=== PATIENT | female | born 1970 | race Caucasian/White ===

== ENCOUNTER 2016-08-10 03:05 | Emergency (ER) | payer MEDICAID, OTHER ==
[~2016-08-10] VITALS: Ht 165.1 cm; Wt 60.0 kg
[~2016-08-10 03:05] MED LIST: HYDR7.5T76 PO; TAMO20TA4 PO
[2016-08-10 03:12] VITALS: BP 130/89; PULSE 67; RESP 14; O2SAT 100
[2016-08-10] MEDS ORDERED: SODIUM CHLORIDE 0.9% FLUSH 10 ML FLUSH IVF PRN (03:15)
--- NOTE | 2016-08-10 03:19 | PD ---
HPI Chief Complaint: OD/ Ingestion Time Seen by Provider: 03:14 Travel History International Travel<30 days: No Contact w/Intl Traveler<30days: No History of Present Illness HPI 46-year-old female brought here by EMS after overdose. Patient was reportedly found in the front yard of the unknown person. Bystanders kindly called EMS. EMS found her unresponsive, hypoventilating with respiratory rate of 3-5, pinpoint pupils. Fresh track zhao. Police found a spoon and a syringe on her person. EMS administered 0.4 mg of Narcan with improvement, GCS 14, agitated and attempting to bite EMS. She was placed in restraints. Blood glucose normal. Patient stable in route. PFS Past Medical History Asthma: Yes Cancer: Yes (BREAST) Congestive Heart Failure: Yes COPD: Yes Diminished Hearing: No Neurologic: Yes (PINCHED NERVE IN BACK) Immunizations Current: Yes Radiation Therapy: Yes : 3 Para: 0 Miscarriage: 03 Ectopic : Yes Past Surgical History Gynecologic Surgery: Yes (SALPINGOECTOMY) Tonsillectomy: Yes Other Surgery: Yes (MASTECTOMY) Social History Alcohol Use: Yes (LAST NIGHT AND TODAY) Tobacco Use: Yes (/2 PPD) Substance Use: Yes Allergies-Medications (Allergen,Severity, Reaction): Coded Allergies: Acetaminophen (Verified Allergy, Intermediate, EPS, 05/17/14) Haldol (Verified Allergy, Intermediate, EPS, 05/17/14) Imitrex (Verified Allergy, Intermediate, EPS, 05/17/14) Reported Meds & Prescriptions Reported Meds & Active Scripts Active Active Prescriptions or Reported Medications Unobtainable Review of Systems ROS Limitations: Altered Mental Status Physical Exam Exam Limitations: Altered Mental Status Narrative GENERAL: Thin female SKIN: Focused skin assessment warm/dry. Previous left mastectomy. Fresh track zhao in the right upper extremity and old track zhao in the left upper extremity HEAD: Atraumatic. Normocephalic. EYES: Pupils equal and round. 4 mm and briskly reactive No scleral icterus. No injection or drainage. ENT: No nasal bleeding or discharge. Mucous membranes pink and moist. NECK: Supple CARDIOVASCULAR: Regular rate and rhythm. No murmur appreciated. RESPIRATORY: No accessory muscle use. Clear to auscultation. Breath sounds equal bilaterally. GASTROINTESTINAL: Abdomen soft, non-tender, nondistended. MUSCULOSKELETAL: No obvious deformities. No edema. NEUROLOGICAL: Lying in bed with eyes partially opened. With noxious stimuli and moves all 4 extremities. Grossly nonfocal neuro exam but limited due to mental status. Localizes pain, screaming "ouch" with noxious stimuli. PSYCHIATRIC: Deferred given mental status Data Data Last Documented VS Vital Signs Date Time Temp Pulse Resp B/P Pulse Ox O2 Delivery O2 Flow Rate FiO2 08/10/16 03:28 97.6 67 14 130/89 96 Room Air Orders Electrocardiogram (08/10/16 03:14) Basic Metabolic Panel (Bmp) (08/10/16 03:14) Complete Blood Count With Diff (08/10/16 03:14) Iv Access Insert/Monitor (08/10/16 03:14) Ecg Monitoring (08/10/16 03:14) Oximetry (08/10/16 03:14) Sodium Chloride 0.9% Flush (Ns Flush) (08/10/16 03:15) Alcohol (Ethanol) (08/10/16 03:14) Potassium Chloride (Kcl) (08/10/16 04:00) Labs Laboratory Tests Test 08/10/16 03:22 White Blood Count 8.7 TH/MM3 Red Blood Count 4.99 MIL/MM3 Hemoglobin 14.1 GM/DL Hematocrit 42.5 % Mean Corpuscular Volume 85.1 FL Mean Corpuscular Hemoglobin 28.2 PG Mean Corpuscular Hemoglobin 33.1 % Concent Red Cell Distribution Width 13.0 % Platelet Count 352 TH/MM3 Mean Platelet Volume 8.0 FL Neutrophils (%) (Auto) 50.4 % Lymphocytes (%) (Auto) 35.8 % Monocytes (%) (Auto) 8.1 % Eosinophils (%) (Auto) 4.3 % Basophils (%) (Auto) 1.4 % Neutrophils # (Auto) 4.4 TH/MM3 Lymphocytes # (Auto) 3.1 TH/MM3 Monocytes # (Auto) 0.7 TH/MM3 Eosinophils # (Auto) 0.4 TH/MM3 Basophils # (Auto) 0.1 TH/MM3 CBC Comment DIFF FINAL Differential Comment Sodium Level 140 MEQ/L Potassium Level 3.0 MEQ/L Chloride Level 103 MEQ/L Carbon Dioxide Level 32.7 MEQ/L Anion Gap 4 MEQ/L Blood Urea Nitrogen 14 MG/DL Creatinine 0.78 MG/DL Estimat Glomerular Filtration 80 ML/MIN Rate Random Glucose 65 MG/DL Calcium Level 8.9 MG/DL Ethyl Alcohol Level LESS THAN 3 MG/DL MDM Medical Decision Making Medical Screen Exam Complete: Yes Emergency Medical Condition: Yes Medical Record Reviewed: Yes Differential Diagnosis 46-year-old female brought in by EMS for altered mental status and possible overdose responding to Narcan. Differential includes opioid overdose, accidental versus intentional, alcohol intoxication, other coingestion, electrolyte abnormality. Clinically there is no evidence of external head trauma and patient's neurologic examination is nonfocal, Less likely head injury, ICH. Narrative Course Patient placed on monitor, IV established and blood obtained. Twelve-lead EKG showed sinus rhythm without notable ST or T-wave abnormalities and normal intervals. QRS 99, QTC 447. CBC, BMP, blood alcohol level unremarkable. Patient was observed in the emergency department for prolonged period without any evidence of repeat hypoventilation, hypoxia. Mental status gradually improved. Patient will ambulate independently and will be discharged home Diagnosis Primary Impression: Opioid overdose Qualified Code: T40.2X1A - Opioid overdose, accidental or unintentional, initial encounter Referrals: [facility] for appointment Additional Instructions: Seek outpatient management for her chemical dependency Med/Other Pt SpecificInfo: No Change to Meds Scripts Unable to Obtain Active Prescriptions or Reported Meds Disposition: 01 DISCHARGE HOME Condition: Stable Gisselle Collier MD Aug 10, 2016 03:19
[2016-08-10 03:28] VITALS: BP 130/89; PULSE 67; RESP 14; TEMP 97.6; O2SAT 96
[2016-08-10 03:40] LABS: AUTOMATED NEUTROPHIL # 4.4 TH/MM3 (1.8-7.7); BASOPHIL # 0.1 TH/MM3 (0-0.2); BASOPHIL % 1.4 % (0.0-2.0); EOSINOPHIL # 0.4 TH/MM3 (0-0.4); EOSINOPHIL % 4.3 % (0.0-4.0); HEMATOCRIT 42.5 % (35.0-46.0); HEMO FLAGS DIFF FINAL; LYMPH % 35.8 % (9.0-44.0); LYMPHOCYTE # 3.1 TH/MM3 (1.0-4.8); MEAN CELL VOLUME 85.1 FL (80.0-100.0); MEAN CORPUSCULAR HEMOGLOBIN 28.2 PG (27.0-34.0); MEAN CORPUSCULAR HGB CONC 33.1 % (32.0-36.0); MONO % 8.1 % (0.0-8.0); NEUT % 50.4 % (16.0-70.0); PLATELET COUNT 352 TH/MM3 (150-450); RED BLOOD COUNT 4.99 MIL/MM3 (4.00-5.30); WHITE BLOOD COUNT 8.7 TH/MM3 (4.0-11.0)
[2016-08-10 03:50] LABS: ANION GAP 4 MEQ/L (5-15); BICARBONATE 32.7 MEQ/L (21.0-32.0); BLOOD UREA NITROGEN 14 MG/DL (7-18); CHLORIDE 103 MEQ/L (98-107); GLOMERULAR FILTRATION RATE 80 ML/MIN (>89); SODIUM (NA) 140 MEQ/L (136-145)
[2016-08-10] MEDS ORDERED: POTASSIUM CHLORIDE 20 MEQ CONTROLLED RELEASE TAB PO ONE (04:00)
[2016-08-10 06:24] VITALS: BP 133/83; PULSE 55; RESP 14; O2SAT 99
[2016-08-10 07:00] VITALS: BP 120/78; PULSE 78; RESP 17; TEMP 97.8; O2SAT 99
[2016-08-10 08:20] VITALS: BP 120/78; TEMP 97.8
--- NOTE | 2016-08-10 12:11 | EKG ---
Date Performed: 08/10/2016 Time Performed: 03:40:56 PTAGE: 46 years EKG: Sinus rhythm NORMAL ECG PREVIOUS TRACING : 04/25/2014 10.17 Compared to prior tracing no significant change DOCTOR: Chris Mcnally Interpretating Date/Time 08/10/2016 12:10:10
== END 2016-08-10 08:30 | disposition home or self-care (01) ==
LOC: NEPE 03:05
DX: T40.2X1A Poisoning by other opioids, accidental (unintentional), initial encounter (principal); R41.82 Altered mental status, unspecified; J45.909 Unspecified asthma, uncomplicated; I50.9 Heart failure, unspecified; J44.9 Chronic obstructive pulmonary disease, unspecified; F17.200 Nicotine dependence, unspecified, uncomplicated
CPT/HCPCS: 80048; 80307; 85025; 93005; 99284

== ENCOUNTER 2016-09-19 09:00 | Observation (INO) | payer OTHER ==
[~2016-09-19] VITALS: Ht 160 cm; Wt 47.9 kg
[2016-09-19] VITALS (7 sets, daily range): BP systolic 128–168; BP diastolic 80–100; PULSE 78–120; RESP 14–22; TEMP 96.7–98; O2SAT 98–100
[2016-09-19] MEDS ORDERED: SODIUM CHLOR 0.9% 1000 ML INJ 1,000 ML IV ONE (09:20)
[2016-09-19] MEDS ORDERED: SODIUM CHLORIDE 0.9% FLUSH 10 ML FLUSH IVF PRN (09:30)
--- NOTE | 2016-09-19 09:31 | PD ---
HPI Chief Complaint: Medical Clearance Time Seen by Provider: 09:10 Travel History International Travel<30 days: No Contact w/Intl Traveler<30days: No Traveled to known affect area: No History of Present Illness HPI This is a 46-year-old female who has a history of IV drug use looking through her old records, who presents via EMS from [facility] after she was found with altered mental status. Fire transport report that they initially got a call for her acting strange. When they arrived they found that she had dystonic type reaction with tardive dyskinesia. They stated the patient was clear for transport with the PD officer. However PD officer reports that she then started doubling over. When they arrived they found her in a rigid flexed position. They state that she appeared to have more dystonic type symptoms. When the patient arrived here she is uncooperative and has agitated type movement. She reports that she took pills. She could not elaborate what type of pills she did. medical tech reports that she may have told them that she took diuretics. There is no further history elicited. She does appear to have older track zhao on her left arm. PFSH Past Medical History Asthma: Yes Cancer: Yes (BREAST) Congestive Heart Failure: Yes COPD: Yes Diminished Hearing: No Neurologic: Yes (PINCHED NERVE IN BACK) Immunizations Current: Yes Radiation Therapy: Yes ?: Unknown : 3 Para: 0 Miscarriage: 3 Ectopic : Yes Past Surgical History Surgical History: Unable to Obtain Gynecologic Surgery: Yes (SALPINGOECTOMY) Tonsillectomy: Yes Other Surgery: Yes (MASTECTOMY) Social History Alcohol Use: Yes (UNABLE TO ASSESS PT UNRESPONSIVE) Tobacco Use: Yes (UNABLE TO ASSESS PT UNRESPONSIVE) Substance Use: Yes (UNABLE TO ASSESS PT UNRESPONSIVE) Allergies-Medications (Allergen,Severity, Reaction): Coded Allergies: Acetaminophen (Verified Allergy, Intermediate, EPS, 05/17/14) Haldol (Verified Allergy, Intermediate, EPS, 05/17/14) Imitrex (Verified Allergy, Intermediate, EPS, 05/17/14) Reported Meds & Prescriptions Reported Meds & Active Scripts Active Active Prescriptions or Reported Medications Unobtainable Review of Systems ROS Limitations: Clinical Condition, Altered Mental Status, Uncooperative, Combative Except as stated in HPI: all other systems reviewed are Neg Physical Exam Narrative GENERAL: Well-developed well-nourished female who is acutely agitated and is writhing all over the bed. She does not appear to be in pain. She just appears to be under the influence of something and is squirming about on the bed. SKIN: Focused skin assessment warm/dry. HEAD: Atraumatic. Normocephalic. EYES: Pupils equal at 3 mm. Reactive.. No scleral icterus. No injection or drainage. ENT: No nasal bleeding or discharge. Mucous membranes pink and moist. NECK: Trachea midline. Supple. CARDIOVASCULAR: Regular rate and rhythm. No murmur appreciated. RESPIRATORY: No accessory muscle use. Clear to auscultation. Breath sounds equal bilaterally. GASTROINTESTINAL: Abdomen soft, non-tender, nondistended. MUSCULOSKELETAL: No obvious deformities. No clubbing. No cyanosis. No edema. Old appearing track zhao on the left before meals. No evidence of abscess or lesions on her skin. NEUROLOGICAL: Awake and agitated and confused. No obvious cranial nerve deficits. Motor grossly within normal limits. Normal speech. Data Data Last Documented VS Vital Signs Date Time Temp Pulse Resp B/P Pulse Ox O2 Delivery O2 Flow Rate FiO2 09/19/16 11:44 120 16 168/93 98 Room Air 09/19/16 09:00 98.0 Orders Electrocardiogram (09/19/16 09:20) Complete Blood Count With Diff (09/19/16 09:20) Comprehensive Metabolic Panel (09/19/16 09:20) Urinalysis - C+S If Indicated (09/19/16 09:20) Chest, Single Ap (09/19/16 09:20) Iv Access Insert/Monitor (09/19/16 09:20) Ecg Monitoring (09/19/16 09:20) Oximetry (09/19/16 09:20) Sodium Chloride 0.9% Flush (Ns Flush) (09/19/16 09:30) Sodium Chlor 0.9% 1000 Ml Inj (Ns 1000 M (09/19/16 09:20) Restraints Non-Violent DAWSON.Q3H (09/19/16 09:20) Drug Screen, Random Urine (09/19/16 09:20) Alcohol (Ethanol) (09/19/16 09:20) Salicylates (Aspirin) (09/19/16 09:20) Tylenol (Acetaminophen) (09/19/16 09:20) Ed Urine Pregnancytest Poc (09/19/16 09:20) Ziprasidone Inj (Geodon Inj) (09/19/16 09:30) Ziprasidone Inj (Geodon Inj) (09/19/16 10:15) Lorazepam Inj (Ativan Inj) (09/19/16 12:00) Lorazepam Inj (Ativan Inj) (09/19/16 12:00) Ns + Kcl 20 Meq Inj (Ns + Kcl 20 Meq Inj (09/19/16 13:15) Admit Order (Ed Use Only) (09/19/16 13:47) Labs Laboratory Tests Test 09/19/16 09:25 White Blood Count 17.6 TH/MM3 Red Blood Count 4.59 MIL/MM3 Hemoglobin 13.4 GM/DL Hematocrit 40.0 % Mean Corpuscular Volume 87.3 FL Mean Corpuscular Hemoglobin 29.2 PG Mean Corpuscular Hemoglobin 33.5 % Concent Red Cell Distribution Width 15.8 % Platelet Count 344 TH/MM3 Mean Platelet Volume 8.2 FL Neutrophils (%) (Auto) 76.9 % Lymphocytes (%) (Auto) 15.1 % Monocytes (%) (Auto) 6.8 % Eosinophils (%) (Auto) 0.9 % Basophils (%) (Auto) 0.3 % Neutrophils # (Auto) 13.6 TH/MM3 Lymphocytes # (Auto) 2.7 TH/MM3 Monocytes # (Auto) 1.2 TH/MM3 Eosinophils # (Auto) 0.2 TH/MM3 Basophils # (Auto) 0.1 TH/MM3 CBC Comment DIFF FINAL Differential Comment Urine Color YELLOW Urine Turbidity CLEAR Urine pH 5.5 Urine Specific [place] 1.028 Urine Protein TRACE mg/dL Urine Glucose (UA) NEG mg/dL Urine Ketones NEG mg/dL Urine Occult Blood NEG Urine Nitrite NEG Urine Bilirubin NEG Urine Urobilinogen LESS THAN 2.0 MG/DL Urine Leukocyte Esterase NEG Urine RBC LESS THAN 1 /hpf Urine WBC 1 /hpf Urine Squamous Epithelial 1 /hpf Cells Urine Hyaline Casts 2 /lpf Urine Mucus FEW /lpf Microscopic Urinalysis Comment CULT NOT INDICATED Sodium Level 141 MEQ/L Potassium Level 3.2 MEQ/L Chloride Level 106 MEQ/L Carbon Dioxide Level 23.8 MEQ/L Anion Gap 11 MEQ/L Blood Urea Nitrogen 25 MG/DL Creatinine 0.69 MG/DL Estimat Glomerular Filtration 92 ML/MIN Rate Random Glucose 80 MG/DL Calcium Level 8.6 MG/DL Total Bilirubin 0.9 MG/DL Aspartate Amino Transf 31 U/L (AST/SGOT) Alanine Aminotransferase 32 U/L (ALT/SGPT) Alkaline Phosphatase 58 U/L Total Protein 7.7 GM/DL Albumin 3.8 GM/DL Salicylates Level LESS THAN 1.7 MG/DL Urine Opiates Screen NEG Acetaminophen Level LESS THAN 2.0 MCG/ML Urine Barbiturates Screen NEG Urine Amphetamines Screen POS Urine Benzodiazepines Screen NEG Urine Cocaine Screen POS Urine Cannabinoids Screen POS Ethyl Alcohol Level LESS THAN 3 MG/DL MDM Medical Decision Making Medical Screen Exam Complete: Yes Emergency Medical Condition: Yes Differential Diagnosis Overdose versus EPS versus metabolic derangement Narrative Course 46-year-old female with a history of previous drug abuse, presents via EMS in custody after she was found violent and agitated. Initial call was for possible dystonic reaction. Patient was going to then be brought to prison or to the hospital by the fashion illustrator. Patient then started having contractions of her body. When paramedics arrived they found her agitated and what appeared to be in a dystonic or agitated state. The patient was extremely agitated and uncooperative. She reported she took "pills". It was unknown what type of pills. The patient's tox screen is positive for amphetamines cocaine and cannabinoids. Serum alcohol level is negative. Acetaminophen and Tylenol levels are negative. The patient has required 6 mg of IV Ativan. She also been given 20 mg of Geodon. She is currently resting much more comfortably. She'll be admitted to the hospital for observation. Her potassium was slightly low at she's been started on normal saline with potassium chloride replacement. There is a call out to the [facility] for admission. Diagnosis Primary Impression: Polysubstance abuse Additional Impressions: Agitation states as acute reaction to exceptional (gross) stress mild hypokalemia Admitting Information Admitting Physician Requests: Observation Scripts Unable to Obtain Active Prescriptions or Reported Meds Alphonso Styles MD Sep 19, 2016 09:31
[2016-09-19] MEDS: ZIPRASIDONE MESYLATE 20 MG VIAL IM PRN (09:38)
[2016-09-19] MEDS ORDERED: ZIPRASIDONE MESYLATE 20 MG VIAL IM ONE (10:15)
[2016-09-19 10:42] LABS: ANION GAP 11 MEQ/L (5-15); AST (GOT) 31 U/L (15-37); BICARBONATE 23.8 MEQ/L (21.0-32.0); BLOOD UREA NITROGEN 25 MG/DL (7-18); CHLORIDE 106 MEQ/L (98-107); GLOMERULAR FILTRATION RATE 92 ML/MIN (>89); POTASSIUM 3.2 MEQ/L (3.5-5.1); SODIUM (NA) 141 MEQ/L (136-145)
[2016-09-19 10:44] LABS: ALKALINE PHOSPHATASE 58 U/L (45-117); ALT (GPT) 32 U/L (10-53); TOTAL BILIRUBIN ADULT 0.9 MG/DL (0.2-1.0)
[2016-09-19 10:46] LABS: AUTOMATED NEUTROPHIL # 13.6 TH/MM3 (1.8-7.7); BASOPHIL # 0.1 TH/MM3 (0-0.2); BASOPHIL % 0.3 % (0.0-2.0); EOSINOPHIL # 0.2 TH/MM3 (0-0.4); EOSINOPHIL % 0.9 % (0.0-4.0); HEMO FLAGS DIFF FINAL; LYMPH % 15.1 % (9.0-44.0); LYMPHOCYTE # 2.7 TH/MM3 (1.0-4.8); MEAN CELL VOLUME 87.3 FL (80.0-100.0); MEAN CORPUSCULAR HEMOGLOBIN 29.2 PG (27.0-34.0); MEAN CORPUSCULAR HGB CONC 33.5 % (32.0-36.0); MONO % 6.8 % (0.0-8.0); NEUT % 76.9 % (16.0-70.0); PLATELET COUNT 344 TH/MM3 (150-450); RED BLOOD COUNT 4.59 MIL/MM3 (4.00-5.30); RED CELL DISTRIBUTION WIDTH 15.8 % (11.6-17.2); WHITE BLOOD COUNT 17.6 TH/MM3 (4.0-11.0)
[2016-09-19 10:48] LABS: ACETAMINOPHEN LESS THAN 2.0 MCG/ML (10.0-30.0)
--- NOTE | 2016-09-19 10:48 | RADRPT ---
EXAM DATE/TIME: 09/19/2016 09:51 [facility] COMPARISON: No previous studies available for comparison. INDICATIONS : Shortness of breath. MEDICAL HISTORY : Unobtainable. SURGICAL HISTORY : Unobtainable. ENCOUNTER: Initial ACUITY: 1 day PAIN SCORE: Non-responsive. LOCATION: Bilateral chest FINDINGS: A single view of the chest demonstrates the lungs to be symmetrically aerated without evidence of mas s, infiltrate or effusion. The cardiomediastinal contours are unremarkable. Osseous structures are intact. CONCLUSION: No acute disease. Jeff Weinstein MD FACR on September 19, 2016 at 10:42 Board Certified Radiologist. This report was verified electronically.
[2016-09-19 10:50] LABS: BLOOD, URINE NEG (NEG); GLUCOSE,URINE NEG (NEG); HYALINE CAST, URINE 2 /lpf (RARE); KETONE, URINE NEG (NEG); MUCUS URINE FEW /lpf (OCC); NITRITE,URINE NEG (NEG); PH, URINE 5.5 (5.0-8.5); SQUAMOUS EPITHELIAL CELL URINE 1 /hpf (0-5); URINE COLOR YELLOW (YELLW/STRAW)
[2016-09-19 10:53] LABS: COMMENT (UR) CULT NOT INDICATED; CULTURE IF INDICATED CULT NOT INDICATED
[2016-09-19 11:29] LABS: AMPHETAMINE, URINE POS (NEG); BARBITURATES, URINE NEG (NEG); COCAINE, URINE POS (NEG)
[2016-09-19] MEDS ORDERED: LORazepam 2 MG/ML VIAL IV PUSH ONE ×2 (12:00)
[2016-09-19] MEDS: NS + KCL 20 MEQ INJ 1,000 ML IV SCH ×2 (13:15→20:59)
--- NOTE | 2016-09-19 14:19 | HHI.HP ---
[facility] Service [facility] Primary Care Physician No Primary Care Physician Admission Diagnosis sympathomimetic ingestion. acute agitation. Diagnoses: (1) Polysubstance abuse Diagnosis: Principal Chief Complaint: polysubstance abuse Travel History International Travel<30 Days: No Contact w/Intl Traveler <30 Da: No Traveled to Known Affected Are: No History of Present Illness This is a 46-year-old female who has a history of IV drug use , who presents via EMS after she was found with altered mental status. per ER report she was found acting strange. When ambulance arrived they found that she had dystonic type reaction with tardive dyskinesia. upon arrival to ER she was very agitated for which she got Geodon and Ativan. at the time of my evaluation she was sedated and I wasn't able to obtain any further information. Review of Systems ROS Limitations: Intoxication, Altered Mental Status Past Family Social History Past Medical History questionable history of COPD and breast cancer per ER documents. Past Surgical History could not be obtained. Reported Medications none reported. Allergies: Coded Allergies: Acetaminophen (Verified Allergy, Intermediate, EPS, 05/17/14) Haldol (Verified Allergy, Intermediate, EPS, 05/17/14) Imitrex (Verified Allergy, Intermediate, EPS, 05/17/14) Active Ordered Medications Current Medications Sodium Chloride 2 ml 2 ml UNSCH PRN IVF FLUSH AFTER USING IV ACCESS; Start at 09:30 Sodium Chloride (NS 1000 ml Inj) 1,000 ml @ 1,000 mls/hr Q1H ONCE IV Last administered on 09/19/16 09:38; Start 09/19/16 at 09:20; Stop 09/19/16 at 10:19 ; Status DC Ziprasidone (Geodon Inj) 10 mg Q12H PRN IM AGITATION Last administered on 09:38; Start 09/19/16 at 09:30 Ziprasidone (Geodon Inj) 10 mg ONCE ONCE IM Last administered on 09/19/16 10: 21; Start 09/19/16 at 10:15; Stop 09/19/16 at 10:16; Status DC Lorazepam (Ativan Inj) 2 mg ONCE ONCE IV PUSH Last administered on 09/19/16 12:00; Start 09/19/16 at 12:00; Stop 09/19/16 at 12:03; Status DC Lorazepam 2 mg 2 mg ONCE ONCE IV PUSH Last administered on 09/19/16 12:00; Start 09/19/16 at 12:00; Stop 09/19/16 at 12:03; Status DC Potassium Chloride/Sodium Chloride (NS + KCl 20 Meq Inj) 1,000 ml @ 200 mls/hr Q5H IV Last administered on 09/19/16 13:15; Start 09/19/16 at 13:15 Family History could not be obtained. Social History history of drug abuse. Physical Exam Vital Signs Vital Signs Date Time Temp Pulse Resp B/P Pulse Ox O2 Delivery O2 Flow Rate FiO2 09/19/16 13:56 101 22 162/100 98 Room Air 09/19/16 11:44 120 16 168/93 98 Room Air 09/19/16 09:18 17 16 09/19/16 09:00 98.0 102 15 136/80 99 09/19/16 09:00 100 Physical Exam GENERAL: sedated- in no acute distress SKIN: No rashes, ecchymoses or lesions. Cool and dry. HEAD: Atraumatic. Normocephalic. No temporal or scalp tenderness. EYES: Pupils equal round and reactive. Extraocular motions intact. No scleral icterus. No injection or drainage. ENT: Nose without bleeding, purulent drainage or septal hematoma. Throat without erythema, tonsillar hypertrophy or exudate. Uvula midline. Airway patent. NECK: Trachea midline. No JVD or lymphadenopathy. Supple, nontender, no meningeal signs. CARDIOVASCULAR: Regular rate and rhythm without murmurs, gallops, or rubs. RESPIRATORY: Clear to auscultation. Breath sounds equal bilaterally. No wheezes , rales, or rhonchi. GASTROINTESTINAL: Abdomen soft, non-tender, nondistended. No hepato-splenomegaly , or palpable masses. No guarding. MUSCULOSKELETAL: Extremities without clubbing, cyanosis, or edema. No joint tenderness, effusion, or edema noted. No calf tenderness. Negative Homans sign bilaterally. NEUROLOGICAL: sedated. Laboratory Laboratory Tests Test 09/19/16 09:25 White Blood Count 17.6 Red Blood Count 4.59 Hemoglobin 13.4 Hematocrit 40.0 Mean Corpuscular Volume 87.3 Mean Corpuscular Hemoglobin 29.2 Mean Corpuscular Hemoglobin 33.5 Concent Red Cell Distribution Width 15.8 Platelet Count 344 Mean Platelet Volume 8.2 Neutrophils (%) (Auto) 76.9 Lymphocytes (%) (Auto) 15.1 Monocytes (%) (Auto) 6.8 Eosinophils (%) (Auto) 0.9 Basophils (%) (Auto) 0.3 Neutrophils # (Auto) 13.6 Lymphocytes # (Auto) 2.7 Monocytes # (Auto) 1.2 Eosinophils # (Auto) 0.2 Basophils # (Auto) 0.1 CBC Comment DIFF FINAL Differential Comment Urine Color YELLOW Urine Turbidity CLEAR Urine pH 5.5 Urine Specific [place] 1.028 Urine Protein TRACE Urine Glucose (UA) NEG Urine Ketones NEG Urine Occult Blood NEG Urine Nitrite NEG Urine Bilirubin NEG Urine Urobilinogen LESS THAN 2.0 Urine Leukocyte Esterase NEG Urine RBC LESS THAN 1 Urine WBC 1 Urine Squamous Epithelial 1 Cells Urine Hyaline Casts 2 Urine Mucus FEW Microscopic Urinalysis Comment CULT NOT INDICATED Sodium Level 141 Potassium Level 3.2 Chloride Level 106 Carbon Dioxide Level 23.8 Anion Gap 11 Blood Urea Nitrogen 25 Creatinine 0.69 Estimat Glomerular Filtration 92 Rate Random Glucose 80 Calcium Level 8.6 Total Bilirubin 0.9 Aspartate Amino Transf 31 (AST/SGOT) Alanine Aminotransferase 32 (ALT/SGPT) Alkaline Phosphatase 58 Total Protein 7.7 Albumin 3.8 Salicylates Level LESS THAN 1.7 Urine Opiates Screen NEG Acetaminophen Level LESS THAN 2.0 Urine Barbiturates Screen NEG Urine Amphetamines Screen POS Urine Benzodiazepines Screen NEG Urine Cocaine Screen POS Urine Cannabinoids Screen POS Ethyl Alcohol Level LESS THAN 3 Result Diagram: 09/19/1692409/[id number]/16924 Imaging Last Impressions Chest X-Ray 09/19/16919 Signed Impressions: Service Date/Time: Monday, September 19, 2016 09:51 - CONCLUSION: No acute disease. Jeff Weinstein MD FACR EKG; sinus tachycardia Assessment and Plan Assessment and Plan A/P - drug overdose continue with supportive care with IV fluid- neuro-checks- Geodon as needed. NPO for now till her mental status improves. -leukocytosis- likely reactive- will monitor temps- CBC in am -hypokalemia- will replace as needed. Discussed Condition With ER physician. Tang Hummel MD Sep 19, 2016 14:18
[2016-09-20] VITALS: BP 121/74; PULSE 92; RESP 17; TEMP 97; O2SAT 98
[2016-09-20 04:00] VITALS: BP 122/74; PULSE 84; RESP 18; TEMP 97.6; O2SAT 98
[2016-09-20] MEDS: NS + KCL 20 MEQ INJ 1,000 ML IV SCH ×2 (04:19→06:31)
[2016-09-20 07:50] VITALS: BP 117/81; PULSE 98; RESP 16; TEMP 98; O2SAT 99
[2016-09-20 08:02] LABS: BASOPHIL % 0.5 % (0.0-2.0); EOSINOPHIL # 0.3 TH/MM3 (0-0.4); EOSINOPHIL % 2.7 % (0.0-4.0); HEMATOCRIT 37.6 % (35.0-46.0); HEMO FLAGS DIFF FINAL; LYMPH % 19.2 % (9.0-44.0); LYMPHOCYTE # 1.8 TH/MM3 (1.0-4.8); MEAN CELL VOLUME 86.8 FL (80.0-100.0); MEAN CORPUSCULAR HEMOGLOBIN 30.1 PG (27.0-34.0); MEAN CORPUSCULAR HGB CONC 34.7 % (32.0-36.0); NEUT % 72.6 % (16.0-70.0); PLATELET COUNT 296 TH/MM3 (150-450); RED BLOOD COUNT 4.33 MIL/MM3 (4.00-5.30); RED CELL DISTRIBUTION WIDTH 15.9 % (11.6-17.2); WHITE BLOOD COUNT 9.6 TH/MM3 (4.0-11.0)
[2016-09-20] MEDS: ZIPRASIDONE MESYLATE 20 MG VIAL IM PRN (08:03)
[2016-09-20 08:16] LABS: BICARBONATE 24.9 MEQ/L (21.0-32.0); POTASSIUM 3.5 MEQ/L (3.5-5.1)
--- NOTE | 2016-09-20 09:26 | HHI.DCPOC ---
Discharge Care Plan Diagnosis: (1) Polysubstance abuse (2) Overdose Goals to Promote Your Health * To prevent worsening of your condition and complications * To maintain your health at the optimal level Directions to Meet Your Goals Take your medications as prescribed Follow your dietary instruction Follow activity as directed Keep your appointments as scheduled Take your immunizations and boosters as scheduled If your symptoms worsen call your PCP, if no PCP go to Urgent Care Center or Emergency Room Smoking is Dangerous to Your Health. Avoid second hand smoke Call the 24-hour hour crisis hotline for domestic abuse at Viktoria Ashraf MD Sep 20, 2016 09:26
[2016-09-20 11:30] VITALS: BP 118/74; PULSE 80; RESP 16; TEMP 97.7; O2SAT 99
--- NOTE | 2016-09-20 11:36 | HHI.DS ---
Discharge Summary Admission Date Sep 19, 2016 at 13:49 Discharge Date: Sep 20, 2016 Admitting Diagnosis sympathomimetic ingestion. acute agitation. (1) Overdose ICD Code: T50.901A Diagnosis: Principal (2) Polysubstance abuse ICD Code: F19.10 Diagnosis: Principal Procedures none Brief History - From Admission This is a 46-year-old female who has a history of IV drug use , who presents via EMS after she was found with altered mental status. per ER report she was found acting strange. When ambulance arrived they found that she had dystonic type reaction with tardive dyskinesia. upon arrival to ER she was very agitated for which she got Geodon and Ativan. at the time of my evaluation she was sedated and I wasn't able to obtain any further information. CBC/BMP: 09/20/16 0730 09/20/16 0730 Significant Findings Laboratory Tests Test 09/19/16 09/20/16 09:25 07:30 White Blood Count 17.6 TH/MM3 (4.0-11.0) Neutrophils (%) (Auto) 76.9 % 72.6 % (16.0-70.0) (16.0-70.0) Neutrophils # (Auto) 13.6 TH/MM3 (1.8-7.7) Monocytes # (Auto) 1.2 TH/MM3 (0-0.9) Urine Mucus FEW /lpf (OCC) Potassium Level 3.2 MEQ/L (3.5-5.1) Blood Urea Nitrogen 25 MG/DL (7-18) Salicylates Level LESS THAN 1.7 MG/DL (2.8-20.0) Acetaminophen Level LESS THAN 2.0 MCG/ML (10.0-30.0) Urine Amphetamines Screen POS (NEG) Urine Cocaine Screen POS (NEG) Urine Cannabinoids Screen POS (NEG) Random Glucose 119 MG/DL (74-106) Calcium Level 8.2 MG/DL (8.5-10.1) Imaging Last Impressions Chest X-Ray 09/19/16 0920 Signed Impressions: Service Date/Time: Monday, September 19, 2016 09:51 - CONCLUSION: No acute disease. Jeff Weinstein MD FACR PE at Discharge GENERAL: in NAD but wants to sleep. SKIN: Warm and dry. HEAD: Normocephalic. EYES: No scleral icterus. No injection or drainage. NECK: Supple, trachea midline. No JVD or lymphadenopathy. CARDIOVASCULAR: Regular rate and rhythm without murmurs, gallops, or rubs. RESPIRATORY: Breath sounds equal bilaterally. No accessory muscle use. GASTROINTESTINAL: Abdomen soft, non-tender, nondistended. MUSCULOSKELETAL: No cyanosis, or edema. BACK: Nontender without obvious deformity. No CVA tenderness. Pt update on day of discharge Follow-up for overdose Patient found sleeping woken up by me. She had no complaints. Denied any pain , shortness of breathing, chest pain, palpitation or lightheadedness or dizziness. Per nurse she did ask for her pain medication earlier. When I discussed patient 's overdose and asked her if she is interested in treatment for addiction she did not reply with any answer. Otherwise no other complaints. Dealt with patient's charge nurse in regards to a certificate in which patient was in the custody of law enforcement. Case management was consulted. Case management spoke to law enforcement and stated that patient is not under arrest so she can go home. Hospital Course Patient was sent by the police to the hospital due to the abnormal behavior. She was found to have drug overdose with amphetamines, cocaine, and marijuana. She had a relatively short hospital course in which she improved quickly. She was given supportive care with IV fluids and when necessary medication. When her clinical status improved and she is back to her baseline I discussed with patient about her overdose to see if she was interested in getting help with her addiction. She would not answer me. Other than that patient has no complaints. He is very anxious to go home. When labs were obtained she was found to have a leukocytosis which was mostly reactive and now all resolved quickly. Pt Condition on Discharge: Stable Discharge Disposition: Discharge Home Discharge Time: > 30 minutes Discharge Instructions DIET: Follow Instructions for: As Tolerated, No Restrictions Activities you can perform: Regular-No Restrictions Follow up Referrals: PCP Follow-up - 1 Week Medication Profile: Unable to Obtain Active Prescriptions or Reported Viktoria Espinoza MD Sep 20, 2016 11:36
--- NOTE | 2016-09-20 16:34 | EKG ---
Date Performed: 09/19/2016 Time Performed: 10:44:59 PTAGE: 46 years EKG: Sinus tachycardia Otherwise within normal limits Since PREVIOUS TRACING , heart rate is faster, otherwise, no significant change. PREVIOUS MASON NG 08/10/2016 03.40.56 DOCTOR: Ariel Carrillo Interpretating Date/Time 09/20/2016 16:31:56
== END 2016-09-20 15:19 | disposition home or self-care (01) ==
LOC: NEPC 09:00 → NEDA 13:49 → UNDOADMOB 13:49 → HOCB 17:48 → NEDA 17:48 → UNDODISOB 09-20 15:19
PROVIDERS: ADMIT Family Medicine; ATTEND Family Medicine
DX: T43.621A Poisoning by amphetamines, accidental (unintentional), initial encounter (principal); T40.5X1A Poisoning by cocaine, accidental (unintentional), initial encounter; T40.7X1A Poisoning by cannabis (derivatives), accidental (unintentional), initial encounter; R41.82 Altered mental status, unspecified; R45.1 Restlessness and agitation; E87.6 Hypokalemia; D72.829 Elevated white blood cell count, unspecified; J44.9 Chronic obstructive pulmonary disease, unspecified; I50.9 Heart failure, unspecified; Z85.3 Personal history of malignant neoplasm of breast; R00.0 Tachycardia, unspecified
CPT/HCPCS: 71010; 80048; 80053; 80307; 81001; 84703; 85025; 93005; 96361; 96372; 96374; 99285; G0378; J2060; J3480; J3486; J7030

== ENCOUNTER 2016-09-24 11:10 | Inpatient (IN) | payer OTHER ==
[~2016-09-24] VITALS: Ht 165.1 cm; Wt 57.0 kg
[2016-09-24] VITALS (16 sets, daily range): BP systolic 85–169; BP diastolic 54–103; PULSE 57–120; RESP 12–80; TEMP 97–98.9; O2SAT 99–100
[2016-09-24] MEDS ORDERED: LORazepam 2 MG/ML VIAL ONE ×2 (11:23→11:25)
[2016-09-24] MEDS ORDERED: SODIUM CHLOR 0.9% 1000 ML INJ 1,000 ML IV SCH (11:36)
[2016-09-24] MEDS ORDERED: LORazepam 2 MG/ML VIAL IV PUSH ONE ×2 (11:45→12:15)
[2016-09-24] MEDS ORDERED: SODIUM CHLOR 0.9% 1000 ML INJ 1,000 ML IV ONE ×2 (11:45)
[2016-09-24] MEDS ORDERED: SODIUM CHLORIDE 0.9% FLUSH 5 ML FLUSH IV FLUSH PRN (11:45)
[2016-09-24] MEDS ORDERED: THIAMINE INJ 100 MG in SODIUM CHLORIDE 0.9% INJ 100 ML IV ONE (11:45)
[2016-09-24 12:12] LABS: AUTOMATED NEUTROPHIL # 12.3 TH/MM3 (1.8-7.7); BASOPHIL # 0.1 TH/MM3 (0-0.2); BASOPHIL % 0.7 % (0.0-2.0); HEMO FLAGS DIFF FINAL; LYMPH % 16.9 % (9.0-44.0); LYMPHOCYTE # 2.8 TH/MM3 (1.0-4.8); MEAN CELL VOLUME 87.4 FL (80.0-100.0); MEAN CORPUSCULAR HEMOGLOBIN 29.3 PG (27.0-34.0); MEAN CORPUSCULAR HGB CONC 33.5 % (32.0-36.0); MONO % 9.2 % (0.0-8.0); NEUT % 73.2 % (16.0-70.0); PLATELET COUNT 382 TH/MM3 (150-450); RED BLOOD COUNT 4.46 MIL/MM3 (4.00-5.30); RED CELL DISTRIBUTION WIDTH 16.1 % (11.6-17.2); WHITE BLOOD COUNT 16.8 TH/MM3 (4.0-11.0)
[2016-09-24 12:20] LABS: PROTHROMBIN TIME - PATIENT 10.9 SEC (9.8-11.6)
[2016-09-24 12:31] LABS: BLOOD, URINE MOD (NEG); GLUCOSE,URINE NEG (NEG); HYALINE CAST, URINE 106 /lpf (RARE); KETONE, URINE TRACE mg/dL (NEG); MUCUS URINE FEW /lpf (OCC); NITRITE,URINE NEG (NEG); PH, URINE 5.5 (5.0-8.5); SQUAMOUS EPITHELIAL CELL URINE 2 /hpf (0-5); URINE COLOR YELLOW (YELLW/STRAW)
[2016-09-24 12:33] LABS: COMMENT (UR) CATH-CULT NOT IND; CULTURE IF INDICATED CATH CULTURE NOT IND
[2016-09-24 12:34] LABS: ALT (GPT) 34 U/L (10-53); ANION GAP 15 MEQ/L (5-15); AST (GOT) 41 U/L (15-37); BLOOD UREA NITROGEN 22 MG/DL (7-18); CHLORIDE 106 MEQ/L (98-107); GLOMERULAR FILTRATION RATE 38 ML/MIN (>89); POTASSIUM 3.4 MEQ/L (3.5-5.1); SODIUM (NA) 142 MEQ/L (136-145)
[2016-09-24 12:44] LABS: ACETAMINOPHEN LESS THAN 2.0 MCG/ML (10.0-30.0); ALKALINE PHOSPHATASE 59 U/L (45-117); CREATINE KINASE 710 U/L (26-192); TOTAL BILIRUBIN ADULT 0.7 MG/DL (0.2-1.0)
[2016-09-24 12:58] LABS: CKMB 9.5 NG/ML (0.5-3.6)
[2016-09-24] MEDS ORDERED: PIPERACIL-TAZO 4.5 GM PREMIX 100 ML IV ONE (13:00)
[2016-09-24] MEDS ORDERED: VANCOMYCIN INJ 1,000 MG in SODIUM CHLOR 0.9% 250 ML INJ 250 ML IV ONE (13:00)
[2016-09-24] MEDS ORDERED: SUCCINYLCHOLINE CHLORIDE 200 MG/10 ML VIAL ONE (13:05)
[2016-09-24] MEDS ORDERED: ETOMIDATE 20 MG/10 ML VIAL ONE (13:07)
[2016-09-24] MEDS ORDERED: PROPOFOL 1000 MG/100 ML INJ 100 ML ONE (13:09)
[2016-09-24 13:10] LABS: AMPHETAMINE, URINE POS (NEG); BARBITURATES, URINE NEG (NEG); COCAINE, URINE NEG (NEG)
[2016-09-24] MEDS: DEXMEDETOMIDINE INJ 200 MCG in SODIUM CHLORIDE 0.9% INJ 50 ML IV SCH ×3 (13:21→20:50)
[2016-09-24] MEDS ORDERED: SUCCINYLCHOLINE CHLORIDE 200 MG/10 ML VIAL IV PUSH ONE (13:30)
[2016-09-24] MEDS ORDERED: PROPOFOL 1000 MG/100 ML INJ 100 ML IV SCH (13:30)
[2016-09-24] MEDS ORDERED: ETOMIDATE 20 MG/10 ML VIAL IV PUSH ONE (13:30)
--- NOTE | 2016-09-24 13:32 | RADRPT ---
EXAM DATE/TIME: 09/24/2016 12:40 [facility] COMPARISON: CHEST SINGLE AP, September 19, 2016, 9:51. INDICATIONS : Evaluate lung status. Patient was unresponsive upon arrival. MEDICAL HISTORY : Chronic obstructive pulmonary disease. Carcinoma, breast. Asthma. SURGICAL HISTORY : Mastectomy, left. Salpingoectomy. ENCOUNTER: Initial ACUITY: 1 day PAIN SCORE: Non-responsive. LOCATION: Bilateral chest FINDINGS: No new focal pleural or parenchymal opacities. No significant pneumothorax or pleural effusion. Cardi omediastinal contours are stable. Bony thorax is intact. CONCLUSION: 1. No acute abnormality or significant interval change. Mainor Vaughn MD on September 24, 2016 at 13:29 Board Certified Radiologist. This report was verified electronically.
--- NOTE | 2016-09-24 13:44 | PD ---
HPI Chief Complaint: OD/ Ingestion Time Seen by Provider: 11:36 Travel History International Travel<30 days: No Contact w/Intl Traveler<30days: No Traveled to known affect area: No History of Present Illness HPI 46-year-old female came to the emergency room brought by EMS with history of being found altered mental status, combative at her neighbor's house. There was not much history available since patient was significantly altered mental status and very combative. There is a history of polysubstance abuse. Patient has been doing a lot of dystonic kind of activity. She was given 75 mg of IV Benadryl by EMS. However this did not change her combativeness. She had discharge paperwork from [facility] from couple days ago for polysubstance abuse. [facility], [facility] Past Medical History Narrative Medical List of her past medical, surgical, social and family history was reviewed from the nursing note. Asthma: Yes Cancer: Yes (BREAST) Congestive Heart Failure: Yes COPD: Yes Diminished Hearing: No Neurologic: Yes (PINCHED NERVE IN BACK) Immunizations Current: Yes Radiation Therapy: Yes ?: Unknown : 3 Para: 0 Miscarriage: 3 Ectopic : Yes Past Surgical History Gynecologic Surgery: Yes (SALPINGOECTOMY) Tonsillectomy: Yes Other Surgery: Yes (MASTECTOMY) Social History Alcohol Use: Yes (UNABLE TO ASSESS PT UNRESPONSIVE) Tobacco Use: Yes (UNABLE TO ASSESS PT UNRESPONSIVE) Substance Use: Yes (UNABLE TO ASSESS PT UNRESPONSIVE) Allergies-Medications (Allergen,Severity, Reaction): Coded Allergies: Acetaminophen (Verified Allergy, Intermediate, EPS, 09/24/16) Haldol (Verified Allergy, Intermediate, EPS, 09/24/16) Imitrex (Verified Allergy, Intermediate, EPS, 09/24/16) *MDRO Multi-Drug Resistant Organism (Verified Adverse Reaction, Unknown, ) MRSA PCR screen positive 09/24/16 Comments List of her allergies reviewed from the nursing note. Reported Meds & Prescriptions Reported Meds & Active Scripts Active Active Prescriptions or Reported Medications Unobtainable Narrative Medication List of her home medications reviewed from the nursing note. Review of Systems Except as stated in HPI: all other systems reviewed are Neg Physical Exam Narrative GENERAL: Altered mental status, dystonic type of activity, eyes open but altered and not answering questions appropriately. SKIN: Focused skin assessment warm/dry. HEAD: Atraumatic. Normocephalic. EYES: Pupils equal and round. No scleral icterus. No injection or drainage. ENT: No nasal bleeding or discharge. Dry mucous membrane and coated. NECK: Trachea midline. No JVD. CARDIOVASCULAR: Regular rate and rhythm. No murmur appreciated. RESPIRATORY: No accessory muscle use. Clear to auscultation. Breath sounds equal bilaterally. GASTROINTESTINAL: Abdomen soft, non-tender, nondistended. Hepatic and splenic margins not palpable. MUSCULOSKELETAL: No obvious deformities. No clubbing. No cyanosis. No edema. NEUROLOGICAL: Altered mental status, combative, dystonic reaction, GCS of 13 PSYCHIATRIC: Unable to assess Data Data Last Documented VS Vital Signs Date Time Temp Pulse Resp B/P Pulse Ox O2 Delivery O2 Flow Rate FiO2 09/24/16 13:38 98.9 100 12 169/92 100 Ventilator 09/24/16 13:20 100 Orders Lorazepam Inj (Ativan Inj) (09/24/16 11:23) Lorazepam Inj (Ativan Inj) (09/24/16 11:25) Ammonia (09/24/16 11:36) Complete Blood Count With Diff (09/24/16 11:36) Comprehensive Metabolic Panel (09/24/16 11:36) Creatine Kinase (Cpk) (09/24/16 11:36) Prothrombin Time / Inr (Pt) (09/24/16 11:36) Troponin I (09/24/16 11:36) Thyroid Stimulating Hormone (09/24/16 11:36) Urinalysis - C+S If Indicated (09/24/16 11:36) Lactic Acid Sepsis Protocol (09/24/16 11:36) Blood Culture (09/24/16 11:36) Chest, Single Ap (09/24/16 11:36) Ct Brain W/O Iv Contrast(Rout) (09/24/16 11:36) Blood Glucose (09/24/16 11:36) Ecg Monitoring (09/24/16 11:36) Iv Access Insert/Monitor (09/24/16 11:36) Oximetry (09/24/16 11:36) Sodium Chloride 0.9% Flush (Ns Flush) (09/24/16 11:45) Sodium Chlor 0.9% 1000 Ml Inj (Ns 1000 M (09/24/16 11:36) Thiamine Inj (Thiamine Inj) (09/24/16 11:45) Drug Screen, Random Urine (09/24/16 11:36) Alcohol (Ethanol) (09/24/16 11:36) Tylenol (Acetaminophen) (09/24/16 11:36) Salicylates (Aspirin) (09/24/16 11:36) Sodium Chlor 0.9% 1000 Ml Inj (Ns 1000 M (09/24/16 11:45) Sodium Chlor 0.9% 1000 Ml Inj (Ns 1000 M (09/24/16 11:45) Lorazepam Inj (Ativan Inj) (09/24/16 11:45) Lorazepam Inj (Ativan Inj) (09/24/16 12:15) Restraints Violent (09/24/16 12:08) CKMB (09/24/16 11:45) CKMB% (09/24/16 11:45) Dexmedetomidine Inj (Precedex Inj) (09/24/16 13:00) Neurological Rass Scale Q30MX2,Q2HX4,Q4H (09/24/16 12:53) Piperacil-Tazo 4.5 Gm Premix (Zosyn 4.5 (09/24/16 13:00) Vancomycin Inj (Vancomycin Inj) (09/24/16 13:00) Succinylcholine Inj (Quelicin Inj) (09/24/16 13:05) Etomidate Inj (Amidate Inj) (09/24/16 13:07) Propofol 1000 Mg/100 Ml Inj (Diprivan 10 (09/24/16 13:09) Chest, Single Ap (09/24/16 ) Succinylcholine Inj (Quelicin Inj) (09/24/16 13:30) Etomidate Inj (Amidate Inj) (09/24/16 13:30) Propofol 1000 Mg/100 Ml Inj (Diprivan 10 (09/24/16 13:30) ^ Infusion (09/24/16 13:20) RASS (09/24/16 13:20) Neurological Rass Scale DAWSON.Q2H (09/24/16 13:20) Chest, Single Ap (09/24/16 ) Admit Order (Ed Use Only) (09/24/16 13:45) Labs Laboratory Tests Test 09/24/16 11:45 White Blood Count 16.8 TH/MM3 Red Blood Count 4.46 MIL/MM3 Hemoglobin 13.1 GM/DL Hematocrit 39.0 % Mean Corpuscular Volume 87.4 FL Mean Corpuscular Hemoglobin 29.3 PG Mean Corpuscular Hemoglobin 33.5 % Concent Red Cell Distribution Width 16.1 % Platelet Count 382 TH/MM3 Mean Platelet Volume 8.0 FL Neutrophils (%) (Auto) 73.2 % Lymphocytes (%) (Auto) 16.9 % Monocytes (%) (Auto) 9.2 % Eosinophils (%) (Auto) 0.0 % Basophils (%) (Auto) 0.7 % Neutrophils # (Auto) 12.3 TH/MM3 Lymphocytes # (Auto) 2.8 TH/MM3 Monocytes # (Auto) 1.5 TH/MM3 Eosinophils # (Auto) 0.0 TH/MM3 Basophils # (Auto) 0.1 TH/MM3 CBC Comment DIFF FINAL Differential Comment Prothrombin Time 10.9 SEC Prothromb Time International 1.0 RATIO Ratio Urine Color YELLOW Urine Turbidity HAZY Urine pH 5.5 Urine Specific Hamilton 1.031 Urine Protein 100 mg/dL Urine Glucose (UA) NEG mg/dL Urine Ketones TRACE mg/dL Urine Occult Blood MOD Urine Nitrite NEG Urine Bilirubin NEG Urine Urobilinogen 2.0 MG/DL Urine Leukocyte Esterase TRACE Urine RBC 1 /hpf Urine WBC 5 /hpf Urine Squamous Epithelial 2 /hpf Cells Urine Hyaline Casts 106 /lpf Urine Mucus FEW /lpf Microscopic Urinalysis Comment CATH-CULT NOT IND Sodium Level 142 MEQ/L Potassium Level 3.4 MEQ/L Chloride Level 106 MEQ/L Carbon Dioxide Level 21.0 MEQ/L Anion Gap 15 MEQ/L Blood Urea Nitrogen 22 MG/DL Creatinine 1.48 MG/DL Estimat Glomerular Filtration 38 ML/MIN Rate Random Glucose 75 MG/DL Lactic Acid Level 2.2 mmol/L Calcium Level 8.9 MG/DL Total Bilirubin 0.7 MG/DL Aspartate Amino Transf 41 U/L (AST/SGOT) Alanine Aminotransferase 34 U/L (ALT/SGPT) Alkaline Phosphatase 59 U/L Ammonia 42 MCMOL/L Total Creatine Kinase 710 U/L Creatine Kinase MB 9.5 NG/ML Creatine Kinase MB % 1.3 % Troponin I LESS THAN 0.02 NG/ML Total Protein 8.1 GM/DL Albumin 4.1 GM/DL Thyroid Stimulating Hormone 0.386 uIU/ML 3rd Gen Urine Opiates Screen NEG Acetaminophen Level LESS THAN 2.0 MCG/ML Urine Barbiturates Screen NEG Urine Amphetamines Screen POS Urine Benzodiazepines Screen NEG Urine Cocaine Screen NEG Urine Cannabinoids Screen NEG Ethyl Alcohol Level LESS THAN 3 MG/DL MDM Medical Decision Making Medical Screen Exam Complete: Yes Emergency Medical Condition: Yes Medical Record Reviewed: Yes Differential Diagnosis Polysubstance overdose, intracranial bleed, sepsis, electrolyte abnormality Narrative Course 1:30 PM patient was given initially 6 mg of IV Ativan with increments of 2 over past 2 hours. Patient continues to remain extremely combative. She was 4. restrained the entire time. The risk was for rhabdomyolysis given how much she was still fighting and I decided to intubate her. Blood test results were back by this time and her lactic acid was elevated and patient had a UTI. I covered her with hepatic and fluid as per sepsis protocol as well. Patient was successfully intubated. Please refer to my procedure note. Postintubation chest x-ray showed the ET tube in right mainstem bronchus. I've asked the respiratory therapist to pull the tube out 2 cm and a repeat x-rays pending. I discussed the case with the crutcher helper was accepted the patient. She is currently on Precedex and propofol drip. Critical Care Narrative Aggregate critical care time was 75 minutes. Time to perform other separately billable procedures was not included in the critical care time. My time did not include minutes spent treating any other patients simultaneously or on activities that did not directly contribute to the patient's treatment. The services I provided to this patient were to treat and/or prevent clinically significant deterioration that could result in: Polysubstance overdose, altered mental status, respiratory failure, sepsis, sepsis protocol, intubation and ventilation management I provided critical care services requiring my management, as noted below: Chart data review, documentation time, medication orders and management, vital sign assessments/reviewing monitor data, ordering and reviewing lab tests, ordering and interpreting/reviewing x-rays and diagnostic studies, care of the patient and discussion of the patient with the admitting physicians. Procedures Procedure Narrative Emergent intubation was performed: INTUBATION: The patient was put in optimal position for the procedure. Rapid sequence intubation was initiated by me using 20 milligrams of etomidate IV and 100 milligrams of succinylcholine IV. The patient was intubated with a 7.5 cuffed endotracheal tube. Tube placement was confirmed by visualization of the tube and balloon passing through the cords, capnometry and subsequent chest x-ray. Breath sounds were equal and well aerated bilaterally postintubation. No breath sounds over stomach. Patient tolerated procedure well. EKG Prior to Arrival: No Physician Communication Physician Communication Dr. Kim Diagnosis Primary Impression: Altered mental state Qualified Code: R41.0 - Delirium Additional Impressions: Polysubstance abuse Drug overdose Qualified Code: T50.904A - Drug overdose, undetermined intent, initial encounter Respiratory failure Qualified Code: J96.00 - Acute respiratory failure, unspecified whether with hypoxia or hypercapnia Sepsis Qualified Code: A41.9 - Sepsis, due to unspecified organism UTI (urinary tract infection) Qualified Code: N39.0 - Urinary tract infection without hematuria, site unspecified Admitting Information Admitting Physician Requests: Admit Scripts Unable to Obtain Active Prescriptions or Reported Meds Kan Ramírez MD Sep 24, 2016 13:44
[2016-09-24 14:05] LABS: LACTIC ACID GHOST NOT REPORTABLE
[2016-09-24] MEDS ORDERED: MISCELLANEOUS NURSING INFORMATION XX SCH (14:15)
[2016-09-24] MEDS ORDERED: RESP: ALBUTEROL 2.5 MG/IPRATROPIUM 0.5 MG NEB (PRN) INH (14:15)
[2016-09-24] MEDS ORDERED: SODIUM CHLORIDE 0.9% FLUSH 10 ML FLUSH IV FLUSH PRN (14:15)
[2016-09-24] MEDS ORDERED: CHLORHEXIDINE GLUCONATE 2 % 1 PACK (2 CLOTHS) TOP PRN (14:15)
--- NOTE | 2016-09-24 14:17 | RADRPT ---
EXAM DATE/TIME: 09/24/2016 14:00 [facility] COMPARISON: CT BRAIN W/O CONTRAST, April 24, 2014, 18:29. INDICATIONS : Altered mental status possible over dose. RADIATION DOSE: 37.35 CTDIvol (mGy) MEDICAL HISTORY : Chronic obstructive pulmonary disease. Congestive heart failure. Carcinoma, breast.Asthma SURGICAL HISTORY : Splenectomy. Mastectomy ENCOUNTER: Initial ACUITY: 1 day PAIN SCALE: Non-responsive LOCATION: cranial TECHNIQUE: Multiple contiguous axial images were obtained of the head. Using automated exposure control and adj ustment of the mA and/or kV according to patient size, radiation dose was kept as low as reasonably a chievable to obtain optimal diagnostic quality images. DICOM format image data is available electro nically for review and comparison. FINDINGS: CEREBRUM: The ventricles are normal for age. No evidence of midline shift, mass lesion, hemorrhage or acute in farction. No extra-axial fluid collections are seen. POSTERIOR FOSSA: The cerebellum and brainstem are intact. The 4th ventricle is midline. The cerebellopontine angle i s unremarkable. EXTRACRANIAL: The visualized portion of the orbits is intact. SKULL: The calvaria is intact. No evidence of skull fracture. CONCLUSION: Negative for acute process. Jeff Weinstein MD FACR on September 24, 2016 at 14:15 Board Certified Radiologist. This report was verified electronically.
--- NOTE | 2016-09-24 14:18 | RADRPT ---
EXAM DATE/TIME: 09/24/2016 13:22 [facility] COMPARISON: CHEST SINGLE AP, September 24, 2016, 12:40. INDICATIONS : Post intubation. MEDICAL HISTORY : Chronic obstructive pulmonary disease. Carcinoma, breast. Asthma. SURGICAL HISTORY : Mastectomy, left. Salpingectomy. ENCOUNTER: Subsequent ACUITY: 1 day PAIN SCORE: Non-responsive. LOCATION: Bilateral chest FINDINGS: ET tube is in the right mainstem bronchus by approximately 1.5 cm. There is an NGT which courses beyo nd the GE junction with tip over the image. Mild airspace disease in the left lower lobe likely refle cts atelectasis. Cardiomediastinal contours are stable. Remainder of the exam is unchanged. CONCLUSION: 1. Proximal right mainstem bronchus intubation. 2. NGT coursing beyond the GE junction with tip omitted from the image. 3. Left lower lobe atelectasis. Mainor Vaughn MD on September 24, 2016 at 14:12 Board Certified Radiologist. This report was verified electronically.
--- NOTE | 2016-09-24 14:36 | RADRPT ---
EXAM DATE/TIME: 09/24/2016 14:13 [facility] COMPARISON: CHEST SINGLE AP, September 24, 2016, 13:22. INDICATIONS : Post intubation MEDICAL HISTORY : unobtainable SURGICAL HISTORY : unobtainable ENCOUNTER: Initial ACUITY: 1 day PAIN SCORE: Non-responsive. LOCATION: Bilateral chest FINDINGS: ET tube and nasogastric tube are in good position. Minimal parenchymal changes left base. Degenerat akiko changes are seen about the right shoulder. CONCLUSION: ET tube position. Jeff Weinstein MD FACR on September 24, 2016 at 14:34 Board Certified Radiologist. This report was verified electronically.
[2016-09-24] MEDS ORDERED: MIDAZOLAM HCL 5 MG/ML VIAL (1 ML) ONE (14:41)
[2016-09-24] MEDS ORDERED: MIDAZOLAM HCL 2 MG/2 ML VIAL IV ONE (14:45)
[2016-09-24] MEDS ORDERED: MIDAZOLAM 100 MG/ML INJ 100 ML IV SCH (14:45)
[2016-09-24 15:21] LABS: BLOOD GAS BASE EXCESS -6.4 mmol/L (-2-2); BLOOD GAS HCO3 18 mmol/L (22-26); BLOOD GAS METHEMOGLOBIN 1.1 % (0-2); BLOOD GAS O2 HGB SATURATION 98 % (90-100); BLOOD GAS OXYGEN CONTENT 16.3 Vol % (12.0-20.0); BLOOD GAS PCO2 29 mmHg (38-42); BLOOD GAS PO2 217 mmHg (61-120); BLOOD GAS TOTAL HGB 11.6 G/DL (12.0-16.0); CRITICAL VALUE NO; OXYGEN DEVICE VENTILATOR; TEMP CORR TO 98.6
[2016-09-24 15:22] LABS: DRAW SITE RT BRACHIAL; FIO2 50 %; NUMBER OF ARTERIAL PUNCTURES 1; STAT NO; ULNAR PULSE PRESENT
[2016-09-24] MEDS: SODIUM CHLOR 0.9% 1000 ML INJ 1,000 ML IV SCH (16:50)
[2016-09-24] MEDS: PROPOFOL 1000 MG/100 ML INJ 100 ML IV SCH (17:17)
[2016-09-24] MEDS: ENOXAPARIN SODIUM 40 MG/0.4 ML SYRINGE SQ SCH (17:36)
[2016-09-24] MEDS: LEVOFLOXACIN 750 MG PREMIX INJ 150 ML IV SCH (17:36)
[2016-09-24] MEDS ORDERED: CHLORHEXIDINE 0.12% (ORAL KIT) 15 ML CUP MT SCH (20:00)
[2016-09-24] MEDS: CHLORHEXIDINE 0.12% (ORAL KIT) 15 ML CUP MT SCH (20:00)
--- NOTE | 2016-09-24 20:23 | HHI.HP ---
HPI Service Critical Care Medicine Primary Care Physician No Primary Care Physician Admission Diagnosis substance overdose, altered mental status, respiratory failure Diagnosis: Chief Complaint: Altered mental status Travel History International Travel<30 Days: No Contact w/Intl Traveler <30 Da: No Traveled to Known Affected Are: No History of Present Illness HPI 46-year-old female came to the emergency room brought by EMS with history of being found altered mental status, combative at her neighbor's house. There was not much history available since patient was significantly altered mental status and very combative. There is a history of polysubstance abuse. Patient has been doing a lot of dystonic kind of activity. She was given 75 mg of IV Benadryl by EMS which did not change her combativeness. She had discharge paperwork from [facility] from couple days ago for polysubstance abuse. She was extremely combative and agitated in the ER. She received Ativan 6 mg IV following which she required emergent endotracheal intubation and was placed on mechanical ventilation and sedated with propofol and Precedex. Head CT without contrast was negative for any bleed. Patient was accepted for admission by critical care medicine service. I evaluated the patient initially while she was undergoing CAT scan and subsequently in the ICU. At the time of evaluation she was sedated, orally intubated on mechanical ventilation. History was obtained by reviewing records and discussion with nursing staff as well as Dr. Ramírez. Her tox screen was positive for amphetamines. History PFSH Past Medical History Narrative Medical List of her past medical, surgical, social and family history was reviewed from the nursing note. Asthma: Yes Cancer: Yes (BREAST) Congestive Heart Failure: Yes COPD: Yes Diminished Hearing: No Neurologic: Yes (PINCHED NERVE IN BACK) Immunizations Current: Yes Radiation Therapy: Yes ?: Unknown : 3 Para: 0 Miscarriage: 3 Ectopic : Yes Past Surgical History Gynecologic Surgery: Yes (SALPINGOECTOMY) Tonsillectomy: Yes Other Surgery: Yes (MASTECTOMY) Social History Alcohol Use: Yes (UNABLE TO ASSESS PT UNRESPONSIVE) Tobacco Use: Yes (UNABLE TO ASSESS PT UNRESPONSIVE) Substance Use: Yes (UNABLE TO ASSESS PT UNRESPONSIVE) Allergies-Medications Allergies-Medications (Allergen,Severity, Reaction): Coded Allergies: Acetaminophen (Verified Allergy, Intermediate, EPS, 09/24/16) Haldol (Verified Allergy, Intermediate, EPS, 09/24/16) Imitrex (Verified Allergy, Intermediate, EPS, 09/24/16) Comments List of her allergies reviewed from the nursing note. Reported Meds & Prescriptions Reported Meds & Active Scripts Active Active Prescriptions or Reported Medications Unobtainable Narrative Medication List of her home medications reviewed from the nursing note. Review of Systems ROS Limitations: Clinical Condition, Intubated, Altered Mental Status Physical Exam Vital Signs Vital Signs Date Time Temp Pulse Resp B/P Pulse Ox O2 Delivery O2 Flow Rate FiO2 09/24/16 19:50 99 40 09/24/16 18:00 63 09/24/16 17:00 69 09/24/16 16:33 100 40 09/24/16 16:00 79 09/24/16 16:00 40 09/24/16 16:00 98.9 79 80 116/80 100 09/24/16 15:00 91 09/24/16 14:45 50 09/24/16 14:30 100 50 09/24/16 14:04 100 09/24/16 13:59 104 12 125/84 100 Auto-Vent 09/24/16 13:38 98.9 100 12 169/92 100 Ventilator 09/24/16 13:20 100 100 09/24/16 13:15 100 09/24/16 11:57 99 Room Air 09/24/16 11:27 97.0 115 22 161/103 100 Room Air Physical Exam HEENT/ Neuro: Sedated, orally intubated, Pallor present, no icterus, tongue/ mucosa dry. Pupils 4 mm bilaterally reacting actively to light. Moves all 4 extremities, localizes to pain. No focal weakness noted grossly Neck: No JVD Chest/Pulm: on mech vent, good air entry bilaterally, no wheezing or crackles. She does have a healed mastectomy scar on the left chest wall. CVS: S1-S2 regular, no murmur GI/abdomen: soft, nontender, bowel sounds sluggish Extremities: warm bilaterally, no edema Laboratory Laboratory Tests Test 09/24/16 09/24/16 09/24/16 11:45 15:07 16:12 White Blood Count 16.8 Red Blood Count 4.46 Hemoglobin 13.1 Hematocrit 39.0 Mean Corpuscular Volume 87.4 Mean Corpuscular Hemoglobin 29.3 Mean Corpuscular Hemoglobin 33.5 Concent Red Cell Distribution Width 16.1 Platelet Count 382 Mean Platelet Volume 8.0 Neutrophils (%) (Auto) 73.2 Lymphocytes (%) (Auto) 16.9 Monocytes (%) (Auto) 9.2 Eosinophils (%) (Auto) 0.0 Basophils (%) (Auto) 0.7 Neutrophils # (Auto) 12.3 Lymphocytes # (Auto) 2.8 Monocytes # (Auto) 1.5 Eosinophils # (Auto) 0.0 Basophils # (Auto) 0.1 CBC Comment DIFF FINAL Differential Comment Prothrombin Time 10.9 Prothromb Time International 1.0 Ratio Urine Color YELLOW Urine Turbidity HAZY Urine pH 5.5 Urine Specific [place] 1.031 Urine Protein 100 Urine Glucose (UA) NEG Urine Ketones TRACE Urine Occult Blood MOD Urine Nitrite NEG Urine Bilirubin NEG Urine Urobilinogen 2.0 Urine Leukocyte Esterase TRACE Urine RBC 1 Urine WBC 5 Urine Squamous Epithelial 2 Cells Urine Hyaline Casts 106 Urine Mucus FEW Microscopic Urinalysis Comment CATH-CULT NOT IND Sodium Level 142 Potassium Level 3.4 Chloride Level 106 Carbon Dioxide Level 21.0 Anion Gap 15 Blood Urea Nitrogen 22 Creatinine 1.48 Estimat Glomerular Filtration 38 Rate Random Glucose 75 Lactic Acid Level 2.2 0.6 Calcium Level 8.9 Total Bilirubin 0.7 Aspartate Amino Transf 41 (AST/SGOT) Alanine Aminotransferase 34 (ALT/SGPT) Alkaline Phosphatase 59 Ammonia 42 Total Creatine Kinase 710 Creatine Kinase MB 9.5 Creatine Kinase MB % 1.3 Troponin I LESS THAN 0.02 Total Protein 8.1 Albumin 4.1 Thyroid Stimulating Hormone 0.386 3rd Gen Urine Opiates Screen NEG Acetaminophen Level LESS THAN 2.0 Urine Barbiturates Screen NEG Urine Amphetamines Screen POS Urine Benzodiazepines Screen NEG Urine Cocaine Screen NEG Urine Cannabinoids Screen NEG Ethyl Alcohol Level LESS THAN 3 Blood Gas Puncture Site RT BRACHIAL Blood Gas Patient Temperature 98.6 Blood Gas HCO3 18 Blood Gas Base Excess -6.4 Blood Gas Oxygen Saturation 98 Arterial Blood pH 7.40 Arterial Blood Partial 29 Pressure CO2 Arterial Blood Partial 217 Pressure O2 Arterial Blood Oxygen Content 16.3 Arterial Blood 1.0 Carboxyhemoglobin Arterial Blood Methemoglobin 1.1 Blood Gas Hemoglobin 11.6 Oxygen Delivery Device VENTILATOR Blood Gas Ventilator Setting Blood Gas Inspired Oxygen 50 Salicylates Level LESS THAN 1.7 Date/Time Procedure Status Source Growth 09/24/16 12:10 Aerobic Blood Culture Received Blood Peripheral Pending 09/24/16 12:10 Anaerobic Blood Culture Received Blood Peripheral Pending Result Diagram: 09/24/16 1145 09/24/16 1145 Imaging Laboratory Tests Test 09/24/16 09/24/16 09/24/16 11:45 15:07 16:12 White Blood Count 16.8 TH/MM3 Red Blood Count 4.46 MIL/MM3 Hemoglobin 13.1 GM/DL Hematocrit 39.0 % Mean Corpuscular Volume 87.4 FL Mean Corpuscular Hemoglobin 29.3 PG Mean Corpuscular Hemoglobin 33.5 % Concent Red Cell Distribution Width 16.1 % Platelet Count 382 TH/MM3 Mean Platelet Volume 8.0 FL Neutrophils (%) (Auto) 73.2 % Lymphocytes (%) (Auto) 16.9 % Monocytes (%) (Auto) 9.2 % Eosinophils (%) (Auto) 0.0 % Basophils (%) (Auto) 0.7 % Neutrophils # (Auto) 12.3 TH/MM3 Lymphocytes # (Auto) 2.8 TH/MM3 Monocytes # (Auto) 1.5 TH/MM3 Eosinophils # (Auto) 0.0 TH/MM3 Basophils # (Auto) 0.1 TH/MM3 CBC Comment DIFF FINAL Differential Comment Prothrombin Time 10.9 SEC Prothromb Time International 1.0 RATIO Ratio Urine Color YELLOW Urine Turbidity HAZY Urine pH 5.5 Urine Specific [place] 1.031 Urine Protein 100 mg/dL Urine Glucose (UA) NEG mg/dL Urine Ketones TRACE mg/dL Urine Occult Blood MOD Urine Nitrite NEG Urine Bilirubin NEG Urine Urobilinogen 2.0 MG/DL Urine Leukocyte Esterase TRACE Urine RBC 1 /hpf Urine WBC 5 /hpf Urine Squamous Epithelial 2 /hpf Cells Urine Hyaline Casts 106 /lpf Urine Mucus FEW /lpf Microscopic Urinalysis Comment CATH-CULT NOT IND Sodium Level 142 MEQ/L Potassium Level 3.4 MEQ/L Chloride Level 106 MEQ/L Carbon Dioxide Level 21.0 MEQ/L Anion Gap 15 MEQ/L Blood Urea Nitrogen 22 MG/DL Creatinine 1.48 MG/DL Estimat Glomerular Filtration 38 ML/MIN Rate Random Glucose 75 MG/DL Lactic Acid Level 2.2 mmol/L 0.6 mmol/L Calcium Level 8.9 MG/DL Total Bilirubin 0.7 MG/DL Aspartate Amino Transf 41 U/L (AST/SGOT) Alanine Aminotransferase 34 U/L (ALT/SGPT) Alkaline Phosphatase 59 U/L Ammonia 42 MCMOL/L Total Creatine Kinase 710 U/L Creatine Kinase MB 9.5 NG/ML Creatine Kinase MB % 1.3 % Troponin I LESS THAN 0.02 NG/ML Total Protein 8.1 GM/DL Albumin 4.1 GM/DL Thyroid Stimulating Hormone 0.386 uIU/ML 3rd Gen Urine Opiates Screen NEG Acetaminophen Level LESS THAN 2.0 MCG/ML Urine Barbiturates Screen NEG Urine Amphetamines Screen POS Urine Benzodiazepines Screen NEG Urine Cocaine Screen NEG Urine Cannabinoids Screen NEG Ethyl Alcohol Level LESS THAN 3 MG/DL Blood Gas Puncture Site RT BRACHIAL Blood Gas Patient Temperature 98.6 Blood Gas HCO3 18 mmol/L Blood Gas Base Excess -6.4 mmol/L Blood Gas Oxygen Saturation 98 % Arterial Blood pH 7.40 Arterial Blood Partial 29 mmHg Pressure CO2 Arterial Blood Partial 217 mmHg Pressure O2 Arterial Blood Oxygen Content 16.3 Vol % Arterial Blood 1.0 % Carboxyhemoglobin Arterial Blood Methemoglobin 1.1 % Blood Gas Hemoglobin 11.6 G/DL Oxygen Delivery Device VENTILATOR Blood Gas Ventilator Setting Blood Gas Inspired Oxygen 50 % Salicylates Level LESS THAN 1.7 MG/DL Assessment and Plan Assessment and Plan 46-year-old female with: Encephalopathy secondary to amphetamine overdose Acute respiratory failure requiring mechanical ventilation Elevated CPK Dehydration Plan: Neuro: Sedation with propofol/Versed/Precedex drips. Follow neuro status. Daily sedation vacation starting tomorrow. Cardiovascular: IV hydration, strict intake output, monitor and replete elect lites, follow BUN creatinine. Pulmonary: Continue mechanical ventilation, vent bundle, bronchodilators as needed. We will initiate daily C Pap trials starting tomorrow to decide extubation provided neurologic status is improved. Renal/: IV hydration, strict intake output, monitor and replete electro lites , follow BUN/creatinine. Whitt catheterization. Follow CPK levels ID: Patient did receive 1 dose of Zosyn and vancomycin in the ER. Suspect initial elevated lactic acid secondary to extreme agitation which has now normalized. Chest x-ray is clear. UA appears clear. Will hold off on antibiotics at this time. Will consider resuming antibiotics if patient has a fever or worsening leukocytosis.. Endocrine: Watch for hyperglycemia, SSI for glycemic control if needed. Prophylaxis: Pepcid/SCDs/subcutaneous heparin. Condition critical Time spent on critical care excluding procedures 60 minutes Dixon Kim MD Sep 24, 2016 20:23
[2016-09-24] MEDS: SODIUM CHLORIDE 0.9% FLUSH 10 ML FLUSH IV FLUSH SCH (20:29)
[2016-09-24] MEDS: FAMOTIDINE 20 MG/2 ML VIAL IV PUSH SCH (20:29)
[2016-09-24] MEDS ORDERED: POTASSIUM PHOSPHATE MONOBASIC 500 MG TAB PO PRN (20:30)
[2016-09-24] MEDS ORDERED: MAGNESIUM SULFATE INJ 4 GM in SODIUM CHLORIDE 0.9% INJ 92 ML IV PRN (20:30)
[2016-09-24] MEDS ORDERED: POTASSIUM CHLOR 40 MEQ PREMIX 100 ML IV PRN ×2 (20:30)
[2016-09-24] MEDS ORDERED: POTASSIUM PHOSPHATE INJ 30 MMOL in SODIUM CHLOR 0.9% 250 ML INJ 250 ML IV PRN (20:30)
[2016-09-24] MEDS ORDERED: POTASSIUM CHLORIDE 25 MEQ EFFERVESCENT TAB PO PRN (20:30)
[2016-09-24] MEDS ORDERED: POTASSIUM PHOSPHATE MONOBASIC 500 MG TAB PO/TUBE PRN (20:30)
[2016-09-24] MEDS ORDERED: MAGNESIUM OXIDE 400 MG TAB PO PRN (20:30)
[2016-09-24] MEDS ORDERED: POTASSIUM CHLOR 20 MEQ PREMIX 100 ML IV PRN (20:30)
[2016-09-24] MEDS ORDERED: SODIUM PHOSPHATE INJ 30 MMOL in SODIUM CHLOR 0.9% 250 ML INJ 240 ML IV PRN (20:30)
[2016-09-24] MEDS ORDERED: MAGNESIUM SULFATE INJ 2 GM in SODIUM CHLORIDE 0.9% INJ 96 ML IV PRN (20:30)
[2016-09-25] VITALS (21 sets, daily range): BP systolic 101–139; BP diastolic 65–92; PULSE 46–69; RESP 12–52; TEMP 95–98.2; O2SAT 97–100
[2016-09-25] MEDS: DEXMEDETOMIDINE INJ 200 MCG in SODIUM CHLORIDE 0.9% INJ 50 ML IV SCH ×5 (03:16→20:46)
[2016-09-25] MEDS: PROPOFOL 1000 MG/100 ML INJ 100 ML IV SCH ×2 (03:17→20:46)
[2016-09-25] MEDS: CHLORHEXIDINE GLUCONATE 2 % 1 PACK (2 CLOTHS) TOP SCH (03:17)
[2016-09-25 04:02] LABS: AUTOMATED NEUTROPHIL # 3.6 TH/MM3 (1.8-7.7); BASOPHIL % 0.7 % (0.0-2.0); EOSINOPHIL # 0.2 TH/MM3 (0-0.4); EOSINOPHIL % 2.5 % (0.0-4.0); HEMATOCRIT 33.5 % (35.0-46.0); HEMO FLAGS DIFF FINAL; LYMPH % 33.1 % (9.0-44.0); LYMPHOCYTE # 2.1 TH/MM3 (1.0-4.8); MEAN CELL VOLUME 88.3 FL (80.0-100.0); MEAN CORPUSCULAR HEMOGLOBIN 30.7 PG (27.0-34.0); MEAN CORPUSCULAR HGB CONC 34.8 % (32.0-36.0); NEUT % 55.7 % (16.0-70.0); PLATELET COUNT 180 TH/MM3 (150-450); RED BLOOD COUNT 3.79 MIL/MM3 (4.00-5.30); RED CELL DISTRIBUTION WIDTH 16.6 % (11.6-17.2); WHITE BLOOD COUNT 6.4 TH/MM3 (4.0-11.0)
[2016-09-25 04:26] LABS: ALKALINE PHOSPHATASE 43 U/L (45-117); ALT (GPT) 32 U/L (10-53); ANION GAP 8 MEQ/L (5-15); AST (GOT) 45 U/L (15-37); BICARBONATE 19.6 MEQ/L (21.0-32.0); BLOOD UREA NITROGEN 19 MG/DL (7-18); CHLORIDE 114 MEQ/L (98-107); CREATINE KINASE 592 U/L (26-192); GLOMERULAR FILTRATION RATE 62 ML/MIN (>89); POTASSIUM 3.2 MEQ/L (3.5-5.1); SODIUM (NA) 142 MEQ/L (136-145); TOTAL BILIRUBIN ADULT 0.5 MG/DL (0.2-1.0)
[2016-09-25 04:45] LABS: CKMB 14.9 NG/ML (0.5-3.6)
[2016-09-25] MEDS: SODIUM CHLOR 0.9% 1000 ML INJ 1,000 ML IV SCH ×2 (05:25→16:24)
[2016-09-25] MEDS: POTASSIUM CHLOR 20 MEQ PREMIX 100 ML IV PRN ×2 (06:16→08:16)
[2016-09-25] MEDS: CHLORHEXIDINE 0.12% (ORAL KIT) 15 ML CUP MT SCH ×2 (08:13→20:47)
[2016-09-25] MEDS: FAMOTIDINE 20 MG/2 ML VIAL IV PUSH SCH ×2 (08:17→20:46)
[2016-09-25] MEDS: SODIUM CHLORIDE 0.9% FLUSH 10 ML FLUSH IV FLUSH SCH ×2 (08:17→20:46)
--- NOTE | 2016-09-25 14:57 | HHI.CCPN ---
Subjective Remarks/Hospital Course 46-year-old female came to the emergency room brought by EMS with history of being found altered mental status, combative at her neighbor's house. There was not much history available since patient was significantly altered mental status and very combative. There is a history of polysubstance abuse. Patient has been doing a lot of dystonic kind of activity. She was given 75 mg of IV Benadryl by EMS which did not change her combativeness. She had discharge paperwork from [facility] from couple days ago for polysubstance abuse. She was extremely combative and agitated in the ER. She received Ativan 6 mg IV following which she required emergent endotracheal intubation and was placed on mechanical ventilation and sedated with propofol and Precedex. Head CT without contrast was negative for any bleed. Patient was accepted for admission by critical care medicine service. I evaluated the patient initially while she was undergoing CAT scan and subsequently in the ICU. At the time of evaluation she was sedated, orally intubated on mechanical ventilation. History was obtained by reviewing records and discussion with nursing staff as well as Dr. Ramírez. Her tox screen was positive for amphetamines. Subjective: 09/25: No acute events overnight .Attempted CPAP trials after weaning off of propofol. The patient remains on Precedex, failed after approximately 1 hour Objective Vital Signs Date Time Temp Pulse Resp B/P Pulse Ox O2 Delivery O2 Flow Rate FiO2 09/25/16 14:00 48 09/25/16 12:00 40 09/25/16 12:00 12 138/87 100 09/25/16 11:00 95.0 09/25/16 03:50 Ventilator Intake and Output 09/24/16 09/24/16 09/24/16 07:59 15:59 23:59 Intake Total 664 ml Output Total 600 ml Balance 64 ml Result Diagram: 09/25/16 0326 09/25/16 0326 Other Results Laboratory Tests Test 09/24/16 15:07 Blood Gas Puncture Site RT BRACHIAL Blood Gas Patient Temperature 98.6 Blood Gas HCO3 18 mmol/L (22-26) Blood Gas Base Excess -6.4 mmol/L (-2-2) Blood Gas Oxygen Saturation 98 % (90-100) Arterial Blood pH 7.40 (7.380-7.420) Arterial Blood Partial 29 mmHg (38-42) Pressure CO2 Arterial Blood Partial 217 mmHg Pressure O2 (61-120) Arterial Blood Oxygen Content 16.3 Vol % (12.0-20.0) Arterial Blood 1.0 % (0-4) Carboxyhemoglobin Arterial Blood Methemoglobin 1.1 % (0-2) Blood Gas Hemoglobin 11.6 G/DL (12.0-16.0) Oxygen Delivery Device VENTILATOR Blood Gas Ventilator Setting Blood Gas Inspired Oxygen 50 % Imaging Laboratory Tests Test 09/24/16 09/24/16 09/24/16 11:45 15:07 16:12 White Blood Count 16.8 TH/MM3 Red Blood Count 4.46 MIL/MM3 Hemoglobin 13.1 GM/DL Hematocrit 39.0 % Mean Corpuscular Volume 87.4 FL Mean Corpuscular Hemoglobin 29.3 PG Mean Corpuscular Hemoglobin 33.5 % Concent Red Cell Distribution Width 16.1 % Platelet Count 382 TH/MM3 Mean Platelet Volume 8.0 FL Neutrophils (%) (Auto) 73.2 % Lymphocytes (%) (Auto) 16.9 % Monocytes (%) (Auto) 9.2 % Eosinophils (%) (Auto) 0.0 % Basophils (%) (Auto) 0.7 % Neutrophils # (Auto) 12.3 TH/MM3 Lymphocytes # (Auto) 2.8 TH/MM3 Monocytes # (Auto) 1.5 TH/MM3 Eosinophils # (Auto) 0.0 TH/MM3 Basophils # (Auto) 0.1 TH/MM3 CBC Comment DIFF FINAL Differential Comment Prothrombin Time 10.9 SEC Prothromb Time International 1.0 RATIO Ratio Urine Color YELLOW Urine Turbidity HAZY Urine pH 5.5 Urine Specific [place] 1.031 Urine Protein 100 mg/dL Urine Glucose (UA) NEG mg/dL Urine Ketones TRACE mg/dL Urine Occult Blood MOD Urine Nitrite NEG Urine Bilirubin NEG Urine Urobilinogen 2.0 MG/DL Urine Leukocyte Esterase TRACE Urine RBC 1 /hpf Urine WBC 5 /hpf Urine Squamous Epithelial 2 /hpf Cells Urine Hyaline Casts 106 /lpf Urine Mucus FEW /lpf Microscopic Urinalysis Comment CATH-CULT NOT IND Sodium Level 142 MEQ/L Potassium Level 3.4 MEQ/L Chloride Level 106 MEQ/L Carbon Dioxide Level 21.0 MEQ/L Anion Gap 15 MEQ/L Blood Urea Nitrogen 22 MG/DL Creatinine 1.48 MG/DL Estimat Glomerular Filtration 38 ML/MIN Rate Random Glucose 75 MG/DL Lactic Acid Level 2.2 mmol/L 0.6 mmol/L Calcium Level 8.9 MG/DL Total Bilirubin 0.7 MG/DL Aspartate Amino Transf 41 U/L (AST/SGOT) Alanine Aminotransferase 34 U/L (ALT/SGPT) Alkaline Phosphatase 59 U/L Ammonia 42 MCMOL/L Total Creatine Kinase 710 U/L Creatine Kinase MB 9.5 NG/ML Creatine Kinase MB % 1.3 % Troponin I LESS THAN 0.02 NG/ML Total Protein 8.1 GM/DL Albumin 4.1 GM/DL Thyroid Stimulating Hormone 0.386 uIU/ML 3rd Gen Urine Opiates Screen NEG Acetaminophen Level LESS THAN 2.0 MCG/ML Urine Barbiturates Screen NEG Urine Amphetamines Screen POS Urine Benzodiazepines Screen NEG Urine Cocaine Screen NEG Urine Cannabinoids Screen NEG Ethyl Alcohol Level LESS THAN 3 MG/DL Blood Gas Puncture Site RT BRACHIAL Blood Gas Patient Temperature 98.6 Blood Gas HCO3 18 mmol/L Blood Gas Base Excess -6.4 mmol/L Blood Gas Oxygen Saturation 98 % Arterial Blood pH 7.40 Arterial Blood Partial 29 mmHg Pressure CO2 Arterial Blood Partial 217 mmHg Pressure O2 Arterial Blood Oxygen Content 16.3 Vol % Arterial Blood 1.0 % Carboxyhemoglobin Arterial Blood Methemoglobin 1.1 % Blood Gas Hemoglobin 11.6 G/DL Oxygen Delivery Device VENTILATOR Blood Gas Ventilator Setting Blood Gas Inspired Oxygen 50 % Salicylates Level LESS THAN 1.7 MG/DL Objective Remarks HEENT/ Neuro: Sedated, orally intubated, Pallor present, no icterus, tongue/ mucosa dry. Pupils 4 mm bilaterally reacting actively to light. Moves all 4 extremities, localizes to pain. Skin : Ecchymosis noted periorbital left area No focal weakness noted grossly Neck: No JVD Chest/Pulm: on mech vent, good air entry bilaterally, no wheezing or crackles. She does have a healed mastectomy scar on the left chest wall. CVS: S1-S2 regular, no murmur GI/abdomen: soft, nontender, bowel sounds sluggish Extremities: warm bilaterally, no edema A/P Assessment and Plan 46-year-old female with: Encephalopathy secondary to amphetamine overdose Acute respiratory failure requiring mechanical ventilation Elevated CPK Dehydration Plan: Neuro: Sedation with propofol/Precedex infusions. Follow neuro status. Daily sedation vacation Cardiovascular: IV hydration, strict intake output, monitor and replete elect lites, follow BUN creatinine. F/U ECHO Pulmonary: Continue mechanical ventilation, vent bundle, bronchodilators as needed. Continue daily C Pap trials starting tomorrow to decide extubation provided neurologic status is improved. Renal/: IV hydration, strict intake output, monitor and replete electrolytes, follow BUN/creatinine. Whitt catheterization. CPK levels- normal ID: Patient did receive 1 dose of Zosyn and vancomycin in the ER. Suspect initial elevated lactic acid secondary to extreme agitation which has now normalized. Chest x-ray is clear. UA appears clear. Will hold off on antibiotics at this time. Will consider resuming antibiotics if patient has a fever or worsening leukocytosis.. Endocrine: Watch for hyperglycemia, SSI for glycemic control if needed. Prophylaxis: Pepcid/SCDs/subcutaneous heparin. Condition critical Dispo: Discussed with CORRECTIONAL MAINTENANCE TECHNICIAN at bedside This patient remains critically ill with one or more organ systems which are or may become a threat to life. I have spent in excess of 33 minutes discontinuously in the care and management of this patient. This time is exclusive of procedures, and includes, but is not limited to, evaluation of the patient, review of the medical record, discussions with family, consultants, nursing staff, or respiratory therapy, and documentation in the medical record. Physician Kelsie Mcgraw MD Sep 25, 2016 14:57
[2016-09-25] MEDS: ENOXAPARIN SODIUM 40 MG/0.4 ML SYRINGE SQ SCH (16:23)
[2016-09-25] MEDS ORDERED: DEXTROSE 50% IN WATER 50 ML VIAL(D50) IV PRN (16:45)
[2016-09-25] MEDS ORDERED: GLUCAGON 1 MG/ML VIAL OTHER PRN (16:45)
[2016-09-25] MEDS: INSULIN ASPART SUPPLEMENTAL SCALE SQ SCH (20:47)
[2016-09-26] VITALS (20 sets, daily range): BP systolic 91–134; BP diastolic 57–81; PULSE 41–109; RESP 12–41; TEMP 97.7–98.6; O2SAT 96–100
[2016-09-26] MEDS: DEXMEDETOMIDINE INJ 200 MCG in SODIUM CHLORIDE 0.9% INJ 50 ML IV SCH ×5 (00:43→14:07)
[2016-09-26] MEDS: PROPOFOL 1000 MG/100 ML INJ 100 ML IV SCH ×2 (02:58→06:43)
[2016-09-26] MEDS: CHLORHEXIDINE GLUCONATE 2 % 1 PACK (2 CLOTHS) TOP SCH (04:00)
[2016-09-26] MEDS: SODIUM CHLOR 0.9% 1000 ML INJ 1,000 ML IV SCH (06:04)
[2016-09-26] MEDS: INSULIN ASPART SUPPLEMENTAL SCALE SQ SCH ×4 (06:04→21:00)
[2016-09-26 06:59] LABS: HEMATOCRIT 35.9 % (35.0-46.0); MEAN CELL VOLUME 89.8 FL (80.0-100.0); MEAN CORPUSCULAR HEMOGLOBIN 29.6 PG (27.0-34.0); PLATELET COUNT 241 TH/MM3 (150-450); RED CELL DISTRIBUTION WIDTH 16.8 % (11.6-17.2); REVIEW FLAG FINAL; WHITE BLOOD COUNT 7.6 TH/MM3 (4.0-11.0)
[2016-09-26 07:34] LABS: BICARBONATE 15.3 MEQ/L (21.0-32.0); MAGNESIUM 2.2 MG/DL (1.5-2.5); POTASSIUM 3.7 MEQ/L (3.5-5.1)
[2016-09-26] MEDS: SODIUM CHLORIDE 0.9% FLUSH 10 ML FLUSH IV FLUSH SCH ×2 (07:47→20:48)
[2016-09-26] MEDS: CHLORHEXIDINE 0.12% (ORAL KIT) 15 ML CUP MT SCH ×2 (07:47→20:00)
[2016-09-26] MEDS: FAMOTIDINE 20 MG/2 ML VIAL IV PUSH SCH ×2 (07:47→20:48)
--- NOTE | 2016-09-26 15:20 | HHI.CCPN ---
Subjective Remarks/Hospital Course 46-year-old female came to the emergency room brought by EMS with history of being found altered mental status, combative at her neighbor's house. There was not much history available since patient was significantly altered mental status and very combative. There is a history of polysubstance abuse. Patient has been doing a lot of dystonic kind of activity. She was given 75 mg of IV Benadryl by EMS which did not change her combativeness. She had discharge paperwork from [facility] from couple days ago for polysubstance abuse. She was extremely combative and agitated in the ER. She received Ativan 6 mg IV following which she required emergent endotracheal intubation and was placed on mechanical ventilation and sedated with propofol and Precedex. Head CT without contrast was negative for any bleed. Patient was accepted for admission by critical care medicine service. I evaluated the patient initially while she was undergoing CAT scan and subsequently in the ICU. At the time of evaluation she was sedated, orally intubated on mechanical ventilation. History was obtained by reviewing records and discussion with nursing staff as well as Dr. Ramírez. Her tox screen was positive for amphetamines. Subjective: 09/25: No acute events overnight .Attempted CPAP trials after weaning off of propofol. The patient remains on Precedex, failed after approximately 1 hour. 09/26: Self extubated during CPAP trials this afternoon. All sedation discontinued. Bedside swallow and progress, with plans for advancement of diet. Objective Vital Signs Date Time Temp Pulse Resp B/P Pulse Ox O2 Delivery O2 Flow Rate FiO2 09/26/16 12:00 40 09/26/16 12:00 61 09/26/16 12:00 97.9 16 134/81 100 09/26/16 03:53 Ventilator Intake and Output 09/25/16 09/25/16 09/26/16 08:00 16:00 00:00 Intake Total 682 ml 987 ml 819 ml Output Total 700 ml 425 ml 325 ml Balance -18 ml 562 ml 494 ml Result Diagram: 09/26/16 0511 09/26/16 0511 Imaging Laboratory Tests Test 09/24/16 09/24/16 09/24/16 11:45 15:07 16:12 White Blood Count 16.8 TH/MM3 Red Blood Count 4.46 MIL/MM3 Hemoglobin 13.1 GM/DL Hematocrit 39.0 % Mean Corpuscular Volume 87.4 FL Mean Corpuscular Hemoglobin 29.3 PG Mean Corpuscular Hemoglobin 33.5 % Concent Red Cell Distribution Width 16.1 % Platelet Count 382 TH/MM3 Mean Platelet Volume 8.0 FL Neutrophils (%) (Auto) 73.2 % Lymphocytes (%) (Auto) 16.9 % Monocytes (%) (Auto) 9.2 % Eosinophils (%) (Auto) 0.0 % Basophils (%) (Auto) 0.7 % Neutrophils # (Auto) 12.3 TH/MM3 Lymphocytes # (Auto) 2.8 TH/MM3 Monocytes # (Auto) 1.5 TH/MM3 Eosinophils # (Auto) 0.0 TH/MM3 Basophils # (Auto) 0.1 TH/MM3 CBC Comment DIFF FINAL Differential Comment Prothrombin Time 10.9 SEC Prothromb Time International 1.0 RATIO Ratio Urine Color YELLOW Urine Turbidity HAZY Urine pH 5.5 Urine Specific [place] 1.031 Urine Protein 100 mg/dL Urine Glucose (UA) NEG mg/dL Urine Ketones TRACE mg/dL Urine Occult Blood MOD Urine Nitrite NEG Urine Bilirubin NEG Urine Urobilinogen 2.0 MG/DL Urine Leukocyte Esterase TRACE Urine RBC 1 /hpf Urine WBC 5 /hpf Urine Squamous Epithelial 2 /hpf Cells Urine Hyaline Casts 106 /lpf Urine Mucus FEW /lpf Microscopic Urinalysis Comment CATH-CULT NOT IND Sodium Level 142 MEQ/L Potassium Level 3.4 MEQ/L Chloride Level 106 MEQ/L Carbon Dioxide Level 21.0 MEQ/L Anion Gap 15 MEQ/L Blood Urea Nitrogen 22 MG/DL Creatinine 1.48 MG/DL Estimat Glomerular Filtration 38 ML/MIN Rate Random Glucose 75 MG/DL Lactic Acid Level 2.2 mmol/L 0.6 mmol/L Calcium Level 8.9 MG/DL Total Bilirubin 0.7 MG/DL Aspartate Amino Transf 41 U/L (AST/SGOT) Alanine Aminotransferase 34 U/L (ALT/SGPT) Alkaline Phosphatase 59 U/L Ammonia 42 MCMOL/L Total Creatine Kinase 710 U/L Creatine Kinase MB 9.5 NG/ML Creatine Kinase MB % 1.3 % Troponin I LESS THAN 0.02 NG/ML Total Protein 8.1 GM/DL Albumin 4.1 GM/DL Thyroid Stimulating Hormone 0.386 uIU/ML 3rd Gen Urine Opiates Screen NEG Acetaminophen Level LESS THAN 2.0 MCG/ML Urine Barbiturates Screen NEG Urine Amphetamines Screen POS Urine Benzodiazepines Screen NEG Urine Cocaine Screen NEG Urine Cannabinoids Screen NEG Ethyl Alcohol Level LESS THAN 3 MG/DL Blood Gas Puncture Site RT BRACHIAL Blood Gas Patient Temperature 98.6 Blood Gas HCO3 18 mmol/L Blood Gas Base Excess -6.4 mmol/L Blood Gas Oxygen Saturation 98 % Arterial Blood pH 7.40 Arterial Blood Partial 29 mmHg Pressure CO2 Arterial Blood Partial 217 mmHg Pressure O2 Arterial Blood Oxygen Content 16.3 Vol % Arterial Blood 1.0 % Carboxyhemoglobin Arterial Blood Methemoglobin 1.1 % Blood Gas Hemoglobin 11.6 G/DL Oxygen Delivery Device VENTILATOR Blood Gas Ventilator Setting Blood Gas Inspired Oxygen 50 % Salicylates Level LESS THAN 1.7 MG/DL Objective Remarks HEENT/ Neuro: Awake and responsive, refused to location of place alert to self. Pupils 4 mm bilaterally reacting actively to light. Moves all 4 extremities, localizes to pain. Skin : Ecchymosis noted periorbital left area No focal weakness noted grossly Neck: No JVD Chest/Pulm: Spontaneous ventilations, good air entry bilaterally, no wheezing or crackles. She does have a healed mastectomy scar on the left chest wall. Nasal cannula O2 at 3 L no accessory muscle use CVS: S1-S2 regular, no murmur GI/abdomen: soft, nontender, bowel sounds sluggish Extremities: warm bilaterally, no edema A/P Assessment and Plan 46-year-old female with: Encephalopathy secondary to amphetamine overdose Acute respiratory failure requiring mechanical ventilation Elevated CPK Dehydration Plan: Neuro: GCS 14, compliant following commands Cardiovascular: IV hydration, strict intake output, monitor and replete elect lites, follow BUN creatinine. Pulmonary: Spontaneous ventilations, bronchodilators as needed. Renal/: IV hydration, strict intake output, monitor and replete electrolytes, follow BUN/creatinine. Whitt catheterization. CPK levels- normal ID: Patient did receive 1 dose of Zosyn and vancomycin in the ER. Suspect initial elevated lactic acid secondary to extreme agitation which has now normalized. Chest x-ray is clear. UA appears clear. Will hold off on antibiotics at this time. Will consider resuming antibiotics if patient has a fever or worsening leukocytosis. GI: Patient tolerating ice chips, advanced to clear liquid diet then heart healthy diet Endocrine: Watch for hyperglycemia, SSI for glycemic control if needed. Prophylaxis: Pepcid/SCDs/subcutaneous heparin. Level 2. Plan transfer to [facility] in a.m.. Psychiatry consulted. Dispo: Discussed with PUMP TECHNICIAN at bedside . Physician Kelsie Mcgraw MD Sep 26, 2016 15:20
[2016-09-26] MEDS: LEVOFLOXACIN 750 MG PREMIX INJ 150 ML IV SCH (17:13)
[2016-09-26] MEDS: ENOXAPARIN SODIUM 40 MG/0.4 ML SYRINGE SQ SCH (17:13)
--- NOTE | 2016-09-26 18:30 | ECHRPT ---
Indication: CONCLUSIONS The left ventricular systolic function is mildly reduced with an estimated ejection fraction in the range of 45- 50%. Trace mitral valve regurgitation. There is trace tricuspid valve regurgitation. Color flow noted at the intra-atrial septum, with left to right flow, possible PFO. BP: 104 / 59 HR: 56 Rhythm: Sinus MEASUREMENTS (Male / Female) Normal Values Technical Quality:Good 2D ECHO LV Diastolic Diameter PLAX 4.3 cm 4.2 - 5.9 / 3.9 - 5.3 cm LV Systolic Diameter PLAX 3.1 cm IVS Diastolic Thickness 0.7 cm 0.6 - 1.0 / 0.6 - 0.9 cm LVPW Diastolic Thickness 0.5 cm 0.6 - 1.0 / 0.6 - 0.9 cm LV Relative Wall Thickness 0.3 RV Internal Dim ED PLAX 2.9 cm LA Systolic Diameter LX 3.4 cm 3.0 - 4.0 / 2.7 - 3.8 cm M-MODE Aortic Root Diameter MM 2.4 cm AV Cusp Separation MM 1.9 cm DOPPLER Mitral E Point Velocity 90.3 cm/s Mitral A Point Velocity 64.2 cm/s Mitral E to A Ratio 1.4 TR Peak Velocity 160.0 cm/s TR Peak Gradient 10.2 mmHg FINDINGS LEFT VENTRICLE Normal left ventricular size. Wall thickness is normal. The left ventricular systolic function is mildly reduced with an estimated ejection fraction in the range of 45- 50%. RIGHT VENTRICLE Normal right ventricular size and systolic function. LEFT ATRIUM The left atrial size is upper limits of normal. RIGHT ATRIUM The right atrial size is normal. ATRIAL SEPTUM Atrial septal aneurysm is present (benign finding). Color flow noted at the intra-atrial septum, with left to right flow, possible PFO. AORTA The aortic root and proximal ascending aorta are normal in size on limited imaging. MITRAL VALVE Structurally normal mitral valve. Trace mitral valve regurgitation. No mitral valve stenosis. AORTIC VALVE Trileaflet aortic valve. No aortic valve stenosis or regurgitation. TRICUSPID VALVE Structurally normal tricuspid valve. No tricuspid valve stenosis. There is trace tricuspid valve regurgitation. PULMONARY VALVE The pulmonary valve is not well visualized. VESSELS The inferior vena cava is normal in size. PERICARDIUM No pericardial effusion. Arturo Campos DO (Electronically Signed) Final Date:26 September 2016 18:29
[2016-09-27] VITALS (19 sets, daily range): BP systolic 127–191; BP diastolic 68–111; PULSE 79–102; RESP 16–59; TEMP 98.2–98.8; O2SAT 94–100
[2016-09-27] MEDS: CHLORHEXIDINE GLUCONATE 2 % 1 PACK (2 CLOTHS) TOP SCH (04:00)
[2016-09-27] MEDS: INSULIN ASPART SUPPLEMENTAL SCALE SQ SCH ×4 (06:46→20:55)
[2016-09-27] MEDS: CHLORHEXIDINE 0.12% (ORAL KIT) 15 ML CUP MT SCH ×2 (07:30→20:00)
--- NOTE | 2016-09-27 08:43 | HHI.PR ---
Subjective Remarks The patient was drowsy. She said that people were irritating her in the hospital. She said she did not overdose intentionally to harm herself. She is not sure how much she had been drinking. Discussed with nursing at the bedside. Objective Vitals Vital Signs Date Time Temp Pulse Resp B/P Pulse Ox O2 Delivery O2 Flow Rate FiO2 09/27/16 08:00 96 09/27/16 08:00 98.8 90 41 142/81 95 09/27/16 07:00 94 59 132/68 96 09/27/16 06:00 101 19 141/74 96 09/27/16 06:00 101 09/27/16 04:00 99 09/27/16 04:00 98.6 99 24 139/81 99 09/27/16 02:00 102 09/27/16 02:00 102 20 136/72 97 09/27/16 00:00 98 09/27/16 00:00 98.2 98 28 127/72 99 09/26/16 22:00 105 09/26/16 20:00 98.6 108 31 121/57 100 09/26/16 20:00 108 09/26/16 19:50 97 21 09/26/16 18:00 109 09/26/16 16:00 71 09/26/16 16:00 98.0 71 18 113/64 100 09/26/16 14:37 60 09/26/16 14:37 100 4 09/26/16 14:00 70 09/26/16 12:00 40 09/26/16 12:00 61 09/26/16 12:00 97.9 41 16 134/81 100 09/26/16 11:30 99 40 09/26/16 10:56 98 40 09/26/16 10:00 58 09/26/16 09:00 40 I/O 09/26/16 09/26/16 09/26/16 09/27/16 09/27/16 09/27/16 07:00 15:00 23:00 07:00 15:00 23:00 Intake Total 765 ml 821 ml 240 ml 0 ml Output Total 250 ml 300 ml 500 ml 750 ml Balance 515 ml 521 ml -260 ml -750 ml Intake Oral 0 ml 240 ml IV Total 765 ml 821 ml 0 ml 0 ml Output Urine Total 250 ml 300 ml 500 ml 750 ml # Bowel Movements 0 0 0 Result Diagram: 09/26/16 0511 09/26/16 0511 Imaging Last Impressions Head CT 09/24/16 1136 Signed Impressions: Service Date/Time: Saturday, September 24, 2016 14:00 - CONCLUSION: Negative for acute process. Jeff Weinstein MD FACR Chest X-Ray 09/24/16 1136 Signed Impressions: Service Date/Time: Saturday, September 24, 2016 12:40 - CONCLUSION: 1. No acute abnormality or significant interval change. Mainor Vaughn MD Objective Remarks GEN: Resting, in no distress. HEENT/ Neuro: Awake and responsive, refused to location of place alert to self. Pupils 4 mm bilaterally reacting actively to light. Moves all 4 extremities, localizes to pain. Skin : Ecchymosis noted periorbital left area. Neck: No JVD Chest: Good air entry bilaterally, no wheezing or crackles. She does have a healed mastectomy scar on the left chest wall. HEART: S1-S2 regular, grade 1 systolic murmur. GI: soft, nontender, nondistended. Extremities: warm bilaterally, no edema. PSYCH: Flattened affect. Medications and IVs Current Medications Medications (Trade) Dose Ordered Sig/Portia Route Start Time Stop Time Status Last Admin (NS Flush) 2 ml UNSCH PRN IV FLUSH 09/24/16 11:45 (NS Flush) 2 ml UNSCH PRN IV FLUSH 09/24/16 14:15 09/25/16 20:46 (NS Flush) 2 ml BID IV FLUSH 09/24/16 21:00 09/26/16 20:48 (Pepcid Inj) 20 mg Q12HR IV PUSH 09/24/16 21:00 09/26/16 20:48 (Lovenox Inj) 40 mg Q24H SQ 09/24/16 16:00 09/26/16 17:13 Miscellaneous Information 1 Q361D XX 09/24/16 14:15 09/24/16 14:15 (Chlorhexidine 2% Cloth) 3 pack Taper DAILY@04 TOP 09/25/16 04:00 09/21/17 03:59 09/27/16 04:00 (Chlorhexidine 2% Cloth) 3 pack UNSCH PRN TOP 09/24/16 14:15 Chlorhexidine Gluconate 15 ml 15 ml BID@08,20 MT 09/24/16 20:00 09/26/16 07:47 Levofloxacin/ Dextrose 150 ml @ 100 mls/hr Q48H IV 09/24/16 16:00 09/26/16 17:13 Potassium Chloride 100 ml @ 50 mls/hr Q2H PRN IV 09/24/16 20:30 (KCl 20 Meq Premix Inj) 100 ml @ 50 mls/hr Q2H PRN IV 09/24/16 20:30 09/25/16 08:16 Potassium Bicarb/ Potassium Chloride 50 meq 50 meq UNSCH PRN PO 09/24/16 20:30 Potassium Chloride 100 ml @ 25 mls/hr UNSCH PRN IV 09/24/16 20:30 Potassium Chloride 100 ml @ 50 mls/hr Q2H PRN IV 09/24/16 20:30 (Magnesium Sulfate Inj/NS Inj) 100 ml @ 50 mls/hr UNSCH PRN IV 09/24/16 20:30 Magnesium Oxide 800 mg 800 mg UNSCH PRN PO 09/24/16 20:30 (Magnesium Sulfate Inj/NS Inj) 100 ml @ 50 mls/hr UNSCH PRN IV 09/24/16 20:30 Potassium Phosphate 2000 mg 2,000 mg Q4H PRN PO 09/24/16 20:30 (Sodium Phosphate Inj/NS 250 ml Inj) 250 ml @ 42 mls/hr UNSCH PRN IV 09/24/16 20:30 Potassium Phosphate 2000 mg 2,000 mg UNSCH PRN PO/TUBE 09/24/16 20:30 (Potassium Phosphate Inj/NS 250 ml Inj) 260 ml @ 42 mls/hr UNSCH PRN IV 09/24/16 20:30 (D50w (Vial) Inj) 50 ml UNSCH PRN IV 09/25/16 16:45 (Glucagon Inj) 1 mg UNSCH PRN OTHER 09/25/16 16:45 A/P Assessment and Plan Encephalopathy/ Amphetamine overdose She was extremely combative and agitated in the ER. She received Ativan 6 mg IV following which she required emergent endotracheal intubation and was placed on mechanical ventilation and sedated with propofol and Precedex. Head CT without contrast was negative for any bleed. Her tox screen was positive for amphetamines. - psychiatry consult pending. - cessation instruction. - monitor for metabolic derangements. - neuro checks, seizure precautions. - ADAT. Acute respiratory failure Requiring mechanical ventilation. The pt self extubated. CXR unremarkable. - oxygen and nebs as needed. - encourage ambulation. - d/c antibiotics. Elevated CPK Likely s/t above. Has been decreasing with IVFs. - encourage free fluid intake. CHF EF 45-50% on echo. Appears euvolemic. Apparently not on meds as an outpt. - monitor volume status. - outpt follow-up. PPx: Subcutaneous heparin Discharge Planning Transfer to the floor Blair Gomez DO Sep 27, 2016 08:43
[2016-09-27] MEDS: SODIUM CHLORIDE 0.9% FLUSH 10 ML FLUSH IV FLUSH SCH ×2 (09:00→20:55)
[2016-09-27] MEDS: DOCUSATE SODIUM 50 MG/SENNA 8.6 MG TAB PO SCH ×2 (10:09→20:55)
--- NOTE | 2016-09-27 11:51 | PD.PSY.CON ---
Provisional Diagnosis Admission Date Sep 24, 2016 at 13:47 [place] I. 1. Polysubstance dependence [place] II. Deferred History of Present Illness Service Psychiatry Consult Requested By Dr. Guerrero Reason for Consult Polysubstance abuse Primary Care Physician No Primary Care Physician HPI Ms. Serrano is a 46-year-old female with a history of substance use disorder who presented with altered mental status to the emergency department. Her urine toxicology was positive for amphetamines. She has subsequently been admitted to the [facility] for medical management. Reviewing the electronic medical record, I note that the patient was seen in consultation by Dr. Castillo in 2014 when she once again presented with altered mental status related to substance use. Previous urine toxicologies have been positive for opiates, benzodiazepines and cannabinoids in addition to amphetamines. Patient seen and examined. Chart reviewed. Case discussed with nursing staff. Patient has been no behavioral problem but has been complaining of some anxiety. On my examination today, the patient is calm and cooperative. Her thought process is linear and there is no evidence of impaired reality construction. She is somewhat disheveled. She remembers little of the circumstances of her presentation here. She does admit to recent substance use. Denies any issues with mood and I can elicit no depressive or hypomanic/ manic symptoms besides some poor sleep, which is likely better attributed to her abuse of amphetamines. She denies any audiovisual hallucinations, and I can elicit no delusional material including but not limited to paranoia, ideas of reference, thought insertion or withdrawal. The remainder of psychiatric ROS is negative. The patient is declining voluntary psychiatric hospitalization at this time, nor is it clear that such hospitalization would be indicated. Past psychiatric history: Patient denies a history of psychiatric diagnosis. She is not currently under the care of a psychiatrist. She says that she was psychiatrically admitted several years ago but cannot recall the circumstances. She denies a history of suicide attempts. Family history: Patient unsure of family history of serious mental illness. Denies family history of substance use disorder or suicide. Chemical dependency history: The patient reports that she has been abusing stimulant medications recently. She also has used oxycodone in the past. She denies any use of alcohol or other GABAergic agents at this time. She denies any synthetic drug abuse. She says that her longest clean time extended over a couple of years, and she did this by herself without the assistance of a 12 step program or rehabilitation program. She is unfortunately presently pre- contemplative with regards to changing her pattern of substance use. Social history: The patient is single. She has no children. She did not graduate high school. She does not work and is on disability. She denies any active legal issues. Denies any history of violent crime or drug crime. She denies any access to guns or firearms. No particular cheondoism or spiritual beliefs. Patient says there is no one from whom I can obtain collateral information. Review of Systems Except as stated in HPI: all other systems reviewed are Neg Past Family Social History Coded Allergies: Acetaminophen (Verified Allergy, Intermediate, EPS, 09/24/16) Haldol (Verified Allergy, Intermediate, EPS, 09/24/16) Imitrex (Verified Allergy, Intermediate, EPS, 09/24/16) *MDRO Multi-Drug Resistant Organism (Verified Adverse Reaction, Unknown, ) MRSA PCR screen positive 09/24/16 Past Medical History see electronic medical record Unable to Obtain Active Prescriptions or Reported Meds Current Medications Medications (Trade) Dose Ordered Sig/Portia Route Start Time Stop Time Status Last Admin (NS Flush) 2 ml UNSCH PRN IV FLUSH 09/24/16 11:45 (NS Flush) 2 ml UNSCH PRN IV FLUSH 09/24/16 14:15 09/25/16 20:46 (NS Flush) 2 ml BID IV FLUSH 09/24/16 21:00 09/26/16 20:48 (Lovenox Inj) 40 mg Q24H SQ 09/24/16 16:00 09/26/16 17:13 Miscellaneous Information 1 Q361D XX 09/24/16 14:15 09/24/16 14:15 (Chlorhexidine 2% Cloth) 3 pack Taper DAILY@04 TOP 09/25/16 04:00 09/21/17 03:59 09/27/16 04:00 (Chlorhexidine 2% Cloth) 3 pack UNSCH PRN TOP 09/24/16 14:15 Chlorhexidine Gluconate 15 ml 15 ml BID@08,20 MT 09/24/16 20:00 09/26/16 07:47 Potassium Chloride 100 ml @ 50 mls/hr Q2H PRN IV 09/24/16 20:30 (KCl 20 Meq Premix Inj) 100 ml @ 50 mls/hr Q2H PRN IV 09/24/16 20:30 09/25/16 08:16 Potassium Bicarb/ Potassium Chloride 50 meq 50 meq UNSCH PRN PO 09/24/16 20:30 Potassium Chloride 100 ml @ 25 mls/hr UNSCH PRN IV 09/24/16 20:30 Potassium Chloride 100 ml @ 50 mls/hr Q2H PRN IV 09/24/16 20:30 (Magnesium Sulfate Inj/NS Inj) 100 ml @ 50 mls/hr UNSCH PRN IV 09/24/16 20:30 Magnesium Oxide 800 mg 800 mg UNSCH PRN PO 09/24/16 20:30 (Magnesium Sulfate Inj/NS Inj) 100 ml @ 50 mls/hr UNSCH PRN IV 09/24/16 20:30 Potassium Phosphate 2000 mg 2,000 mg Q4H PRN PO 09/24/16 20:30 (Sodium Phosphate Inj/NS 250 ml Inj) 250 ml @ 42 mls/hr UNSCH PRN IV 09/24/16 20:30 Potassium Phosphate 2000 mg 2,000 mg UNSCH PRN PO/TUBE 09/24/16 20:30 (Potassium Phosphate Inj/NS 250 ml Inj) 260 ml @ 42 mls/hr UNSCH PRN IV 09/24/16 20:30 (D50w (Vial) Inj) 50 ml UNSCH PRN IV 09/25/16 16:45 (Glucagon Inj) 1 mg UNSCH PRN OTHER 09/25/16 16:45 (Shonda-Colace) 1 tab BID PO 09/27/16 10:00 09/27/16 10:09 Patient's Strengths (min. 2) Verbally fluent. History of extended sobriety by patient report. Physical Exam Physical examination completed by the primary team. On my examination today, the patient appears to be in no acute physical distress. I do note that she has a black eye on the left. She is somewhat generally disheveled. No motor abnormalities noted. No signs of intoxication or withdrawal noted. Labs and vitals reviewed: Vital Signs Vital Signs Date Time Temp Pulse Resp B/P Pulse Ox O2 Delivery O2 Flow Rate FiO2 09/27/16 09:14 99 09/27/16 08:00 96 09/27/16 08:00 98.8 41 142/81 09/26/16 19:50 21 09/26/16 14:37 4 09/26/16 03:53 Ventilator I/O 09/26/16 09/26/16 09/26/16 07:59 15:59 23:59 Intake Total 765 ml 821 ml 240 ml Output Total 250 ml 300 ml 500 ml Balance 515 ml 521 ml -260 ml Lab Results Laboratory Tests Test 09/24/16 09/24/16 09/24/16 09/24/16 11:45 14:30 15:07 16:12 Prothrombin Time 10.9 SEC Prothromb Time International 1.0 RATIO Ratio Urine Color YELLOW Urine Turbidity HAZY Urine pH 5.5 Urine Specific [place] 1.031 Urine Protein 100 mg/dL Urine Glucose (UA) NEG mg/dL Urine Ketones TRACE mg/dL Urine Occult Blood MOD Urine Nitrite NEG Urine Bilirubin NEG Urine Urobilinogen 2.0 MG/DL Urine Leukocyte Esterase TRACE Urine RBC 1 /hpf Urine WBC 5 /hpf Urine Squamous Epithelial 2 /hpf Cells Urine Hyaline Casts 106 /lpf Urine Mucus FEW /lpf Microscopic Urinalysis Comment CATH-CULT NOT IND Ammonia 42 MCMOL/L Troponin I LESS THAN 0.02 NG/ML Thyroid Stimulating Hormone 0.386 uIU/ML 3rd Gen Urine Opiates Screen NEG Acetaminophen Level LESS THAN 2.0 MCG/ML Urine Barbiturates Screen NEG Urine Amphetamines Screen POS Urine Benzodiazepines Screen NEG Urine Cocaine Screen NEG Urine Cannabinoids Screen NEG Ethyl Alcohol Level LESS THAN 3 MG/DL Nasal Screen MRSA (PCR) MRSA DETECTED Blood Gas Puncture Site RT BRACHIAL Blood Gas Patient Temperature 98.6 Blood Gas HCO3 18 mmol/L Blood Gas Base Excess -6.4 mmol/L Blood Gas Oxygen Saturation 98 % Arterial Blood pH 7.40 Arterial Blood Partial 29 mmHg Pressure CO2 Arterial Blood Partial 217 mmHg Pressure O2 Arterial Blood Oxygen Content 16.3 Vol % Arterial Blood 1.0 % Carboxyhemoglobin Arterial Blood Methemoglobin 1.1 % Blood Gas Hemoglobin 11.6 G/DL Oxygen Delivery Device VENTILATOR Blood Gas Ventilator Setting Blood Gas Inspired Oxygen 50 % Lactic Acid Level 0.6 mmol/L Salicylates Level LESS THAN 1.7 MG/DL Test 09/25/16 09/26/16 03:26 05:11 Neutrophils (%) (Auto) 55.7 % Lymphocytes (%) (Auto) 33.1 % Monocytes (%) (Auto) 8.0 % Eosinophils (%) (Auto) 2.5 % Basophils (%) (Auto) 0.7 % Neutrophils # (Auto) 3.6 TH/MM3 Lymphocytes # (Auto) 2.1 TH/MM3 Monocytes # (Auto) 0.5 TH/MM3 Eosinophils # (Auto) 0.2 TH/MM3 Basophils # (Auto) 0.0 TH/MM3 CBC Comment DIFF FINAL Differential Comment Total Bilirubin 0.5 MG/DL Aspartate Amino Transf 45 U/L (AST/SGOT) Alanine Aminotransferase 32 U/L (ALT/SGPT) Alkaline Phosphatase 43 U/L Total Creatine Kinase 592 U/L Creatine Kinase MB 14.9 NG/ML Creatine Kinase MB % 2.5 % Total Protein 5.9 GM/DL Albumin 2.6 GM/DL White Blood Count 7.6 TH/MM3 Red Blood Count 4.00 MIL/MM3 Hemoglobin 11.8 GM/DL Hematocrit 35.9 % Mean Corpuscular Volume 89.8 FL Mean Corpuscular Hemoglobin 29.6 PG Mean Corpuscular Hemoglobin 33.0 % Concent Red Cell Distribution Width 16.8 % Platelet Count 241 TH/MM3 Mean Platelet Volume 8.3 FL Sodium Level 144 MEQ/L Potassium Level 3.7 MEQ/L Chloride Level 116 MEQ/L Carbon Dioxide Level 15.3 MEQ/L Anion Gap 13 MEQ/L Blood Urea Nitrogen 16 MG/DL Creatinine 0.71 MG/DL Estimat Glomerular Filtration 89 ML/MIN Rate Random Glucose 87 MG/DL Calcium Level 7.8 MG/DL Phosphorus Level 2.8 MG/DL Magnesium Level 2.2 MG/DL Last Impressions Head CT 09/24/16 1136 Signed Impressions: Service Date/Time: Saturday, September 24, 2016 14:00 - CONCLUSION: Negative for acute process. Jeff Weinstein MD FACR Chest X-Ray 09/24/16 1136 Signed Impressions: Service Date/Time: Saturday, September 24, 2016 12:40 - CONCLUSION: 1. No acute abnormality or significant interval change. Mainor Vaughn MD Mental Status Examination Patient is in hospital gown. She is somewhat disheveled but maintaining basic hygiene. She is awake and alert and oriented 3. No delirium. No motor abnormalities. Speech within normal limits for rate, tone and volume. Language and fund of knowledge average. Focus and concentration fairly intact. Mood fair and affect blunted. Thought process linear. No loosening of associations. No delusions. Denies audiovisual hallucinations. Denies suicidal or homicidal ideation, intent or plan. Insight and judgment are likely chronically poor, particularly with respect to the substance use. Assessment & Plan Problem List: (1) Polysubstance dependence ICD Code: F19.20 Assessment & Plan This is a 46-year-old female with psychiatric history as detailed above who is presently voluntarily admitted to the [facility] following an episode of altered mental status, likely associated with recreational substance abuse. The patient does have significant substance use issues but there is no evidence of any mental illness as defined under the [place] act. The patient is not presently suicidal or homicidal. She does not meet the [place] act criteria, nor does she meet criteria for hospitalization at this time on a general inpatient psychiatric unit. She would benefit from chemical dependency evaluation and treatment, and we should refer her for this on discharge. If family members/ friends do involve themselves in her care, they should be counseled regarding use of the [place] act to get the patient to chemical dependency treatment as this seems to be an ongoing issue for the patient. I did consider placing the patient under a physician's certificate, but presently [facility] is simply detoxifying patients under the [facility] as the wait list for their rehabilitation program is on the order of months, and this would be of limited utility in a patient whose primary substance of abuse is currently stimulants. I have counseled the patient regarding warning signs for need to return to the psychiatric emergency room as part of the general safety plan. Patient is otherwise psychiatrically clear for discharge. Thank you very much for this consultation. Case discussed with JOSE. Roque Mujica MD Sep 27, 2016 11:51
[2016-09-27 14:19] LABS: POTASSIUM 3.2 MEQ/L (3.5-5.1)
[2016-09-27 14:45] LABS: CKMB 5.7 NG/ML (0.5-3.6)
[2016-09-27] MEDS ORDERED: POTASSIUM CHLORIDE 25 MEQ EFFERVESCENT TAB PO ONE (15:15)
[2016-09-27] MEDS: ENOXAPARIN SODIUM 40 MG/0.4 ML SYRINGE SQ SCH (15:55)
[2016-09-27] MEDS ORDERED: SODIUM PHOSPHATE INJ 30 MMOL in SODIUM CHLOR 0.9% 250 ML INJ 250 ML IV ONE (16:00)
[2016-09-28] MEDS: CHLORHEXIDINE GLUCONATE 2 % 1 PACK (2 CLOTHS) TOP SCH (00:27)
[2016-09-28 01:08] VITALS: BP 126/93; PULSE 97; RESP 18; TEMP 98.1; O2SAT 100
[2016-09-28 03:52] VITALS: BP 159/61; PULSE 82; RESP 18; TEMP 98.9; O2SAT 100
[2016-09-28] MEDS: INSULIN ASPART SUPPLEMENTAL SCALE SQ SCH ×4 (06:50→21:00)
[2016-09-28] MEDS: CHLORHEXIDINE 0.12% (ORAL KIT) 15 ML CUP MT SCH ×2 (08:00→20:00)
[2016-09-28 08:49] VITALS: BP_SYST 146; BP_SYST 154; BP_SYST 157; BP_DIAS 84; BP_DIAS 86; BP_DIAS 95; PULSE 80; RESP 20; TEMP 98.2; O2SAT 98
[2016-09-28] MEDS: SODIUM CHLORIDE 0.9% FLUSH 10 ML FLUSH IV FLUSH SCH ×2 (09:00→21:37)
[2016-09-28] MEDS: DOCUSATE SODIUM 50 MG/SENNA 8.6 MG TAB PO SCH ×2 (09:00→21:38)
[2016-09-28 11:11] LABS: HEMATOCRIT 38.1 % (35.0-46.0); MEAN CELL VOLUME 87.1 FL (80.0-100.0); MEAN CORPUSCULAR HGB CONC 34.4 % (32.0-36.0); PLATELET COUNT 288 TH/MM3 (150-450); RED BLOOD COUNT 4.38 MIL/MM3 (4.00-5.30); RED CELL DISTRIBUTION WIDTH 16.7 % (11.6-17.2); REVIEW FLAG FINAL; WHITE BLOOD COUNT 6.6 TH/MM3 (4.0-11.0)
[2016-09-28 12:00] LABS: BICARBONATE 29.3 MEQ/L (21.0-32.0); POTASSIUM 3.6 MEQ/L (3.5-5.1)
[2016-09-28] MEDS ORDERED: POTASSIUM CHLORIDE 25 MEQ EFFERVESCENT TAB PO ONE (12:45)
--- NOTE | 2016-09-28 12:49 | HHI.PR ---
Subjective Remarks The patient was resting in bed comfortably. She said her feet were hurting her. She said she had a couple of falls and she sustained a few cuts. Discussed with nursing who reports that the patient has been acting strange, such as laughing continuously. Objective Vitals Vital Signs Date Time Temp Pulse Resp B/P Pulse Ox O2 Delivery O2 Flow Rate FiO2 09/28/16 08:49 98.2 80 20 157/95 98 146/86 154/84 09/28/16 03:52 98.9 82 18 159/61 100 09/28/16 01:08 98.1 97 18 126/93 100 09/27/16 21:33 98.8 97 18 135/70 100 09/27/16 17:35 98.8 92 20 128/76 100 09/27/16 16:00 84 09/27/16 16:00 98.5 90 21 152/92 94 09/27/16 15:00 84 32 142/84 100 09/27/16 14:19 90 20 147/81 100 09/27/16 14:08 86 24 141/111 100 09/27/16 14:00 79 20 191/87 100 09/27/16 13:00 94 27 138/100 100 I/O 09/27/16 09/27/16 09/27/16 09/28/16 09/28/16 09/28/16 07:00 15:00 23:00 07:00 15:00 23:00 Intake Total 0 ml 400 ml Output Total 750 ml 1200 ml Balance -750 ml -800 ml Intake Oral 400 ml IV Total 0 ml Output Urine Total 750 ml 1200 ml # Voids 10 # Bowel Movements 0 0 1 0 Result Diagram: 09/28/16 0937 09/28/16 0937 Imaging Last Impressions Head CT 09/24/16 1136 Signed Impressions: Service Date/Time: Saturday, September 24, 2016 14:00 - CONCLUSION: Negative for acute process. Jeff Weinstein MD FACR Chest X-Ray 09/24/16 1136 Signed Impressions: Service Date/Time: Saturday, September 24, 2016 12:40 - CONCLUSION: 1. No acute abnormality or significant interval change. Mainor Vaughn MD Objective Remarks GEN: Resting, in no distress. HEENT/ Neuro: Awake and responsive. Pupils 4 mm bilaterally, reacting actively to light. Moves all 4 extremities, localizes to pain. Skin : Ecchymosis noted periorbital left area. Abrasions on bilateral feet. Neck: No JVD Chest: Good air entry bilaterally, no wheezing or crackles. She does have a healed mastectomy scar on the left chest wall. HEART: S1-S2 regular, grade 1 systolic murmur. GI: soft, nontender, nondistended. Extremities: warm bilaterally, no edema. PSYCH: Flattened affect. Medications and IVs Current Medications Medications (Trade) Dose Ordered Sig/Portia Route Start Time Stop Time Status Last Admin (NS Flush) 2 ml UNSCH PRN IV FLUSH 09/24/16 14:15 09/25/16 20:46 (NS Flush) 2 ml BID IV FLUSH 09/24/16 21:00 09/28/16 09:00 (Lovenox Inj) 40 mg Q24H SQ 09/24/16 16:00 09/27/16 15:55 Miscellaneous Information 1 Q361D XX 09/24/16 14:15 09/24/16 14:15 (Chlorhexidine 2% Cloth) 3 pack Taper DAILY@04 TOP 09/25/16 04:00 09/21/17 03:59 09/27/16 04:00 (Chlorhexidine 2% Cloth) 3 pack UNSCH PRN TOP 09/24/16 14:15 (Peridex 0.12% Liq) 15 ml BID@08,20 MT 09/24/16 20:00 09/26/16 07:47 (D50w (Vial) Inj) 50 ml UNSCH PRN IV 09/25/16 16:45 (Glucagon Inj) 1 mg UNSCH PRN OTHER 09/25/16 16:45 (Shonda-Colace) 1 tab BID PO 09/27/16 10:00 09/27/16 10:09 (Roxicodone) 5 mg Q6H PRN PO 09/27/16 16:15 09/28/16 10:38 (Neosporin Oint) 1 applic DAILY TOPICAL 09/28/16 12:15 A/P Assessment and Plan Encephalopathy/ Amphetamine overdose She was extremely combative and agitated in the ER. She received Ativan 6 mg IV following which she required emergent endotracheal intubation and was placed on mechanical ventilation and sedated with propofol and Precedex. Head CT without contrast was negative for any bleed. Her tox screen was positive for amphetamines. Psychiatry consult appreciated. - cessation instruction. - monitor for metabolic derangements. - neuro checks, seizure precautions. - ADAT. - follow up with psych. - check B12, folate levels. - PT eval. Acute respiratory failure Requiring mechanical ventilation. The pt self extubated. CXR unremarkable. - oxygen and nebs as needed. Tolerating room air. - encourage ambulation. - d/c antibiotics. Elevated CPK Likely s/t above. Improved with fluids. - encourage free fluid intake. CHF EF 45-50% on echo. Appears euvolemic. Apparently not on meds as an outpt. - monitor volume status. - outpt follow-up. Hyperglycemia Glucose has been elevated. - insulin sliding scale. - check a hemoglobin A1c. PPx: Subcutaneous heparin Discharge Planning Awaiting clinical improvement Blair Gomez DO Sep 28, 2016 12:49
[2016-09-28 13:16] VITALS: BP 146/83; PULSE 99; RESP 20; TEMP 95.2; O2SAT 98
[2016-09-28] MEDS: NEOMYCIN/POLYMYXIN/BACITRACIN OINT 15 GM TUBE TOPICAL SCH (15:18)
[2016-09-28 16:27] VITALS: BP 157/95; PULSE 89; RESP 20; TEMP 98.2; O2SAT 99
[2016-09-28] MEDS: ENOXAPARIN SODIUM 40 MG/0.4 ML SYRINGE SQ SCH (16:45)
[2016-09-28 20:52] VITALS: BP 127/83; PULSE 96; RESP 20; TEMP 98.6; O2SAT 97
[2016-09-29 00:45] VITALS: BP 124/77; PULSE 98; RESP 16; TEMP 98.5; O2SAT 98
[2016-09-29] MEDS: CHLORHEXIDINE GLUCONATE 2 % 1 PACK (2 CLOTHS) TOP SCH (04:00)
[2016-09-29 04:36] VITALS: BP 138/89; PULSE 88; RESP 16; TEMP 98.2; O2SAT 98
[2016-09-29] MEDS: INSULIN ASPART SUPPLEMENTAL SCALE SQ SCH ×4 (06:10→20:56)
[2016-09-29] MEDS: CHLORHEXIDINE 0.12% (ORAL KIT) 15 ML CUP MT SCH (08:00)
[2016-09-29] MEDS: DOCUSATE SODIUM 50 MG/SENNA 8.6 MG TAB PO SCH ×2 (08:19→20:56)
[2016-09-29] MEDS: SODIUM CHLORIDE 0.9% FLUSH 10 ML FLUSH IV FLUSH SCH ×2 (08:19→20:55)
[2016-09-29] MEDS: NEOMYCIN/POLYMYXIN/BACITRACIN OINT 15 GM TUBE TOPICAL SCH (08:20)
[2016-09-29 08:53] VITALS: BP 140/92; PULSE 84; RESP 17; TEMP 97.7; O2SAT 96
--- NOTE | 2016-09-29 09:56 | HHI.PR ---
Subjective Remarks The patient says she has been coughing up some mucus. She says she smokes half a pack to a pack daily. She still feels wobbly when walking around. Discussed with case management. Objective Vitals Vital Signs Date Time Temp Pulse Resp B/P Pulse Ox O2 Delivery O2 Flow Rate FiO2 09/29/16 08:53 97.7 84 17 140/92 96 09/29/16 04:36 98.2 88 16 138/89 98 09/29/16 00:45 98.5 98 16 124/77 98 09/28/16 22:38 16 09/28/16 20:52 98.6 96 20 127/83 97 09/28/16 16:27 98.2 89 20 157/95 99 09/28/16 13:16 95.2 99 20 146/83 98 I/O 09/28/16 09/28/16 09/28/16 09/29/16 09/29/16 09/29/16 07:00 15:00 23:00 07:00 15:00 23:00 Intake Total 720 ml Balance 720 ml Intake Oral 720 ml # Voids 10 2 # Bowel Movements 0 Result Diagram: 09/28/16 0937 09/28/16 0937 Imaging Last Impressions Head CT 09/24/16 1136 Signed Impressions: Service Date/Time: Saturday, September 24, 2016 14:00 - CONCLUSION: Negative for acute process. Jeff Weinstein MD FACR Chest X-Ray 09/24/16 1136 Signed Impressions: Service Date/Time: Saturday, September 24, 2016 12:40 - CONCLUSION: 1. No acute abnormality or significant interval change. Mainor Vaughn MD Objective Remarks GEN: Resting, in no distress. HEENT/ Neuro: Awake and responsive. Pupils 4 mm bilaterally, reacting actively to light. Moves all 4 extremities, localizes to pain. Skin : Ecchymosis noted periorbital left area. Abrasions on bilateral feet. Neck: No JVD Chest: Diffuse wheezing. No crackles. HEART: S1-S2 regular, grade 1 systolic murmur. GI: soft, nontender, nondistended. Extremities: warm bilaterally, no edema. PSYCH: Mood and affect appropriate. Medications and IVs Current Medications Medications (Trade) Dose Ordered Sig/Portia Route Start Time Stop Time Status Last Admin (NS Flush) 2 ml UNSCH PRN IV FLUSH 09/24/16 14:15 09/25/16 20:46 (NS Flush) 2 ml BID IV FLUSH 09/24/16 21:00 09/29/16 08:19 (Lovenox Inj) 40 mg Q24H SQ 09/24/16 16:00 09/28/16 16:45 Miscellaneous Information 1 Q361D XX 09/24/16 14:15 09/24/16 14:15 (Chlorhexidine 2% Cloth) 3 pack Taper DAILY@04 TOP 09/25/16 04:00 09/21/17 03:59 09/27/16 04:00 (Chlorhexidine 2% Cloth) 3 pack UNSCH PRN TOP 09/24/16 14:15 (Peridex 0.12% Liq) 15 ml BID@08,20 MT 09/24/16 20:00 09/26/16 07:47 (D50w (Vial) Inj) 50 ml UNSCH PRN IV 09/25/16 16:45 (Glucagon Inj) 1 mg UNSCH PRN OTHER 09/25/16 16:45 (Shonda-Colace) 1 tab BID PO 09/27/16 10:00 09/29/16 08:19 (Roxicodone) 5 mg Q6H PRN PO 09/27/16 16:15 09/29/16 08:19 (Neosporin Oint) 1 applic DAILY TOPICAL 09/28/16 12:15 09/29/16 08:20 A/P Assessment and Plan Encephalopathy/ Amphetamine overdose She was extremely combative and agitated in the ER. She received Ativan 6 mg IV following which she required emergent endotracheal intubation and was placed on mechanical ventilation and sedated with propofol and Precedex. Head CT without contrast was negative for any bleed. Her tox screen was positive for amphetamines. Psychiatry consult appreciated. B12, folate and ammonia levels normal. - cessation instruction. - neuro checks, seizure precautions. - ADAT. - PT eval, case management consult. Acute respiratory failure Requiring mechanical ventilation. The pt self extubated. CXR unremarkable. Now with diffuse wheezing. Sputum culture with normal ambrocio. - oxygen as needed. Tolerating room air. - standing nebs. - incentive spirometry. - encourage ambulation. - smoking cessation instruction. Elevated CPK Likely s/t above. Improved with fluids. - encourage free fluid intake. CHF EF 45-50% on echo. Appears euvolemic. Apparently not on meds as an outpt. - will try to clarify home meds. - monitor volume status. - outpt follow-up. Hyperglycemia Glucose has been elevated. - insulin sliding scale. - check a hemoglobin A1c. PPx: Subcutaneous heparin Discharge Planning Anticipate d/c home in 1-2 days Blair Gomez DO Sep 29, 2016 09:55
[2016-09-29] MEDS: RESP: ALBUTEROL 2.5 MG/IPRATROPIUM 0.5 MG NEB (SCH) NEB ×3 (10:00→20:00)
[2016-09-29] MEDS: NICOTINE 21 MG/24 HR PATCH T-DERMAL SCH (10:56)
[2016-09-29 12:46] VITALS: BP 134/88; PULSE 98; RESP 16; TEMP 98.5; O2SAT 99
[2016-09-29] MEDS: ENOXAPARIN SODIUM 40 MG/0.4 ML SYRINGE SQ SCH (15:06)
[2016-09-29 16:54] LABS: HEMOGLOBIN Ao 85.2 %; HEMOGLOBIN LA1C 2.3 %; HEMOGLOBIN P3 3.7 %
[2016-09-29 17:14] VITALS: BP 134/84; PULSE 94; RESP 17; TEMP 98.4; O2SAT 98
[2016-09-29] MEDS ORDERED: WALKER WHEELS/F1 MIS (17:19)
[2016-09-29 20:00] VITALS: BP 111/69; PULSE 91; RESP 20; TEMP 98.5; O2SAT 98
[2016-09-30] VITALS: BP 124/73; PULSE 96; RESP 20; TEMP 98.4; O2SAT 97
[2016-09-30 04:00] VITALS: BP 134/82; PULSE 93; RESP 20; TEMP 98.5; O2SAT 97
[2016-09-30] MEDS: INSULIN ASPART SUPPLEMENTAL SCALE SQ SCH (06:07)
[2016-09-30] MEDS: SODIUM CHLORIDE 0.9% FLUSH 10 ML FLUSH IV FLUSH SCH (07:57)
[2016-09-30] MEDS: DOCUSATE SODIUM 50 MG/SENNA 8.6 MG TAB PO SCH (07:57)
[2016-09-30] MEDS: NEOMYCIN/POLYMYXIN/BACITRACIN OINT 15 GM TUBE TOPICAL SCH (07:58)
[2016-09-30] MEDS: NICOTINE 21 MG/24 HR PATCH T-DERMAL SCH (07:58)
[2016-09-30 08:00] VITALS: BP 139/81; PULSE 83; RESP 16; TEMP 98.1; O2SAT 99
[2016-09-30] MEDS: RESP: ALBUTEROL 2.5 MG/IPRATROPIUM 0.5 MG NEB (SCH) NEB (08:00)
[2016-09-30] MEDS ORDERED: TRIPOIN TOPICAL (08:52)
--- NOTE | 2016-09-30 08:53 | HHI.DCPOC ---
Discharge Care Plan Diagnosis: (1) Altered mental state (2) Weakness (3) Drug overdose (4) Polysubstance dependence (5) Respiratory failure Goals to Promote Your Health * To prevent worsening of your condition and complications * To maintain your health at the optimal level Directions to Meet Your Goals Take your medications as prescribed Follow your dietary instruction Follow activity as directed Keep your appointments as scheduled Take your immunizations and boosters as scheduled If your symptoms worsen call your PCP, if no PCP go to Urgent Care Center or Emergency Room Smoking is Dangerous to Your Health. Avoid second hand smoke Call the 24-hour hour crisis hotline for domestic abuse at Blair Gomez DO Sep 30, 2016 08:52
[2016-09-30] MEDS ORDERED: VENTAER INH (08:58)
--- NOTE | 2016-09-30 08:58 | HHI.DS ---
Discharge Summary Admission Date Sep 24, 2016 at 13:47 Discharge Date: Sep 30, 2016 Admitting Diagnosis substance overdose, altered mental status, respiratory failure (1) Altered mental state ICD Code: R41.82 (2) Weakness ICD Code: R53.1 (3) Respiratory failure ICD Code: J96.90 (4) Drug overdose ICD Code: T50.901A (5) Polysubstance dependence ICD Code: F19.20 Procedures Intubation/extubation Brief History - From Admission HPI 46-year-old female came to the emergency room brought by EMS with history of being found altered mental status, combative at her neighbor's house. There was not much history available since patient was significantly altered mental status and very combative. There is a history of polysubstance abuse. Patient has been doing a lot of dystonic kind of activity. She was given 75 mg of IV Benadryl by EMS which did not change her combativeness. She had discharge paperwork from [facility] from couple days ago for polysubstance abuse. She was extremely combative and agitated in the ER. She received Ativan 6 mg IV following which she required emergent endotracheal intubation and was placed on mechanical ventilation and sedated with propofol and Precedex. Head CT without contrast was negative for any bleed. Patient was accepted for admission by critical care medicine service. I evaluated the patient initially while she was undergoing CAT scan and subsequently in the ICU. At the time of evaluation she was sedated, orally intubated on mechanical ventilation. History was obtained by reviewing records and discussion with nursing staff as well as Dr. Ramírez. Her tox screen was positive for amphetamines. CBC/BMP: 09/28/16 0937 09/28/16 0937 Significant Findings Laboratory Tests Test 09/27/16 09/28/16 13:02 09:37 Potassium Level 3.2 MEQ/L (3.5-5.1) Chloride Level 109 MEQ/L (98-107) Random Glucose 125 MG/DL 171 MG/DL (74-106) (74-106) Calcium Level 8.4 MG/DL (8.5-10.1) Phosphorus Level 1.7 MG/DL (2.5-4.9) Total Creatine Kinase 240 U/L (26-192) Creatine Kinase MB 5.7 NG/ML (0.5-3.6) Imaging Last Impressions Head CT 09/24/16 1136 Signed Impressions: Service Date/Time: Saturday, September 24, 2016 14:00 - CONCLUSION: Negative for acute process. Jeff Weinstein MD FACR Chest X-Ray 09/24/16 1136 Signed Impressions: Service Date/Time: Saturday, September 24, 2016 12:40 - CONCLUSION: 1. No acute abnormality or significant interval change. Mainor Vaughn MD PE at Discharge GEN: Resting, in no distress. HEENT/ Neuro: Awake and responsive. Pupils 4 mm bilaterally, reacting actively to light. Moves all 4 extremities, localizes to pain. Skin : Ecchymosis noted periorbital left area. Abrasions on bilateral feet. Neck: No JVD Chest: Diffuse wheezing. No crackles. HEART: S1-S2 regular, grade 1 systolic murmur. GI: soft, nontender, nondistended. Extremities: warm bilaterally, no edema. PSYCH: Mood and affect appropriate. Pt update on day of discharge The patient was sitting up in bed, on the phone. She said she was feeling better. She was ambulating with a walker. She wanted a bus pass. She also wanted her clothes from the emergency department. 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 Discussed with nursing. Hospital Course Encephalopathy/ Amphetamine overdose She was extremely combative and agitated in the ER. She received Ativan 6 mg IV following which she required emergent endotracheal intubation and was placed on mechanical ventilation and sedated with propofol and Precedex. Head CT without contrast was negative for any bleed. Her tox screen was positive for amphetamines. She was extubated successfully. Psychiatry was consulted. B12, folate and ammonia levels were normal. She was placed on neuro checks and seizure precautions. She worked with PT who recommended a walker. Case management was consulted. The pt continued to improve. She will follow up with her primary care doctor. She received drug cessation instruction. Acute respiratory failure Requiring mechanical ventilation. The pt self extubated. CXR unremarkable. Sputum culture with normal ambrocio. Tolerating room air. She received standing nebs and incentive spirometry. We encouraged ambulation. She received smoking cessation instruction. She will be discharged with an albuterol inhaler. Elevated CPK Improved with IV fluids. We encouraged free fluid intake. CHF EF 45-50% on echo. Appears euvolemic. Apparently not on meds as an outpt. She will need outpt follow-up. Hyperglycemia Glucose has been elevated. She was placed on an insulin sliding scale. Hemoglobin A1c WNL. Pt Condition on Discharge: Stable Discharge Disposition: Discharge Home Discharge Time: <= 30 minutes Discharge Instructions DIET: Follow Instructions for: As Tolerated, No Restrictions Activities you can perform: Weight Bearing as Blake Follow up Referrals: Oncology - 1 Week PCP Follow-up - 1 Week New Medications: Albuterol 18 GM Inh (Ventolin Hfa 18 GM Inh) 90 Mcg/Act Aer 2 PUFF INH Q4-6H PRN SHORTNESS OF BREATH #1 Ref 0 INHALER Walker with Front Wheels (Walker with Front Wheels) 1 Mis Mis 1 EA .ROUTE DIRECTED #1 Ref 0 EA Ylsuyizo-Vqkvggonki-Pexrhyycq (Triple Antibiotic 3.5-400-5000) 1 Oin Oin 1 APPLIC TOPICAL DAILY wounds #1 Blair Emmanuel DO Sep 30, 2016 08:58
[2016-09-30] MEDS ORDERED: REMOVE OLD PATCH T-DERMAL SCH (09:00)
== END 2016-09-30 10:38 | disposition home or self-care (01) | DRG 917 ==
LOC: NEPE 11:10 → NEDA 13:47 → HIMW 14:30 → N05A 09-27 16:39
PROVIDERS: ADMIT Hospitalist; ATTEND Hospitalist
PROC: 0BH17EZ Insertion of Endotracheal Airway into Trachea, Via Natural or Artificial Opening (ICD-10-PCS; principal; 2016-09-24)
PROC: 5A1945Z Respiratory Ventilation, 24-96 Consecutive Hours (ICD-10-PCS; 2016-09-24)
DX: T43.622A Poisoning by amphetamines, intentional self-harm, initial encounter (principal); A41.9 Sepsis, unspecified organism; J96.00 Acute respiratory failure, unspecified whether with hypoxia or hypercapnia; G93.40 Encephalopathy, unspecified; N39.0 Urinary tract infection, site not specified; F19.20 Other psychoactive substance dependence, uncomplicated; Y92.9 Unspecified place or not applicable; E86.0 Dehydration; I50.9 Heart failure, unspecified; J44.9 Chronic obstructive pulmonary disease, unspecified; Z90.81 Acquired absence of spleen; Z90.10 Acquired absence of unspecified breast and nipple
CPT/HCPCS: 31500; 36600; 51702; 70450; 71010; 80048; 80053; 80307; 81001; 82140; 82550; 82552; 82607; 82805; 82948; 83036; 83605; 83735; 84100; 84132; 84443; 84484; 85025; 85027; 85610; 87040; 87070; 87205; 87641; 93306; 94002; 94003; 96365; 96368; 96374; 96375; 96376; J0330; J1650; J1815; J1956; J2060; J2250; J2543; J3370; J3411; J3480; J7030; J7050

== ENCOUNTER 2017-02-26 15:44 | Emergency (ER) | payer OTHER ==
[~2017-02-26] VITALS: Ht 157.5 cm; Wt 57.0 kg
[~2017-02-26 15:44] MED LIST changes: -HYDR7.5T76 PO; -TAMO20TA4 PO; +TRIPOIN TOPICAL; +VENTAER INH; +WALKER WHEELS/F1 MIS
[2017-02-26 15:47] VITALS: BP 134/81; PULSE 113; RESP 20; TEMP 97.8; O2SAT 98
[2017-02-27] MEDS ORDERED: NYST1000 SWISH-SWAL (10:51)
[2017-02-27] MEDS ORDERED: CLIN150C14 PO (10:51)
[2017-02-27] MEDS ORDERED: IBUP1TAB7 PO (10:51)
[2017-02-27] MEDS ORDERED: MAGICPED SWISH-SWAL (11:14)
== END 2017-02-26 21:09 | disposition left against medical advice (07) ==
LOC: NED 15:44
DX: Z00.00 Encounter for general adult medical examination without abnormal findings (principal); Z53.21 Procedure and treatment not carried out due to patient leaving prior to being seen by health care provider
CPT/HCPCS: 99281

== ENCOUNTER 2017-02-27 09:59 | Emergency (ER) | payer OTHER ==
[~2017-02-27] VITALS: Ht 157.5 cm; Wt 56.5 kg
[2017-02-27 10:00] VITALS: BP 131/83; PULSE 110; RESP 20; TEMP 98.9; O2SAT 96
--- NOTE | 2017-02-27 10:49 | PD ---
HPI Chief Complaint: ENT Complaint Time Seen by Provider: 10:32 Travel History International Travel<30 days: No Contact w/Intl Traveler<30days: No Traveled to known affect area: No History of Present Illness HPI 47-year-old female presents to the emergency Department with complaint of oral pain and multiple oral lesions for the past 2-3 days. Admits to snorting an unknown drug on February 23 that has caused her nostrils to be very dry and dried out the skin around her nose. Reports IV drug use. Reports difficulty swallowing secondary to pain of her tongue and lesions on her tongue. Otherwise , no complications swallowing and is able to drink water without choking, coughing, regurgitation. Denies throat pain. Denies fever, vomiting. Rates pain 8/10. Has not taken any medications or tried any treatment severe symptoms. Constantly aggravated. No known relieving factors. Does not have a primary care provider. History of breast cancer and soft tissue cancer. Denies other significant past medical history. Allergies to acetaminophen, haloperidol, sumatriptan. Has no other medical complaints. No other modifying factors or associated signs and symptoms. PFSH Past Medical History Asthma: Yes Cancer: Yes (BREAST) Congestive Heart Failure: Yes COPD: Yes Diminished Hearing: No Neurologic: Yes (PINCHED NERVE IN BACK) Immunizations Current: Yes Radiation Therapy: Yes ?: Unknown LMP: unknown : 3 Para: 0 Miscarriage: 3 Ectopic : Yes Past Surgical History Gynecologic Surgery: Yes (SALPINGOECTOMY) Tonsillectomy: Yes Other Surgery: Yes (MASTECTOMY) Social History Alcohol Use: Yes (UNABLE TO ASSESS PT UNRESPONSIVE) Tobacco Use: Yes (UNABLE TO ASSESS PT UNRESPONSIVE) Substance Use: Yes (unable to obtain) Allergies-Medications (Allergen,Severity, Reaction): Coded Allergies: acetaminophen (Verified Allergy, Intermediate, EPS, 02/27/17) haloperidol (Verified Allergy, Intermediate, EPS, 02/27/17) sumatriptan (Verified Allergy, Intermediate, EPS, 02/27/17) *MDRO Multi-Drug Resistant Organism (Verified Adverse Reaction, Unknown, ) MRSA PCR screen positive 09/24/16 Reported Meds & Prescriptions Reported Meds & Active Scripts Active Magic Mouthwash Pediatric/Adult Liq (Lidocaine/Diphenhydr/Alum/Mg/Simeth) 60 Ml Susp 5 Ml SWISH-SWAL ACHS Each 5mL contains: Diphenydramine 4.5mg, Viscous Lidocaine 2% 10mg, Maalox Advanced Regular Strength 2.7ml Clindamycin (Clindamycin HCl) 150 Mg Cap 450 Mg PO Q8HR 10 Days Nystatin Liq 100,000 unit/ml Susp 5 Ml SWISH-SWAL QID 10 Days Review of Systems Except as stated in HPI: all other systems reviewed are Neg Physical Exam Narrative GENERAL: Well-nourished, well-developed female patient, in no acute distress; afebrile, nontoxic-appearing SKIN: Warm and dry. Track zhao noted to right antecubital; without signs of infection. HEAD: Atraumatic. Normocephalic. No facial edema, erythema, tenderness on palpation. No lymphadenopathy. EYES: Pupils equal and round. No scleral icterus. No injection or drainage. ENT: Mucosa pink and moist. No erythema or exudates. No uvular edema. No uvular , palatal, or tonsillar deviation. Airway patent. EARS: Bilateral pinnae and external canals appear within normal limits. Bilateral tympanic membranes without erythema, dullness or perforation. MOUTH: Mucous membranes moist with a white coating on her tongue,buccal mucosa and back of throat that appears to be consistent with oral candidiasis. Multiple large flesh-colored lesions noted to bilateral mucosa, right side of tongue, lower frontal gumline. NECK: Trachea midline. No lymphadenopathy. CARDIOVASCULAR: Regular rate. RESPIRATORY: No accessory muscle use. GASTROINTESTINAL: Rounded. MUSCULOSKELETAL: No obvious deformities. No clubbing. No cyanosis. No edema. NEUROLOGICAL: Awake and alert. Oriented 3. No obvious cranial nerve deficits. Motor grossly within normal limits. Normal speech. PSYCHIATRIC: Appropriate mood and affect; insight and judgment normal. Data Data Last Documented VS Vital Signs Date Time Temp Pulse Resp B/P (MAP) Pulse Ox O2 Delivery O2 Flow Rate FiO2 02/27/17 10:00 98.9 110 20 131/83 (99) 96 Room Air Orders Orders Group A Rapid Strep Screen (02/27/17 10:49) Ibuprofen (Motrin) (02/27/17 11:00) Strep Culture (Group A) (02/27/17 10:45) Ed Discharge Order (02/27/17 11:13) MDM Medical Decision Making Medical Screen Exam Complete: Yes Emergency Medical Condition: Yes Medical Record Reviewed: Yes Differential Diagnosis Canker sores, oral cancer, lesions of oral mucosa, oral thrush Narrative Course 47-year-old female with oral thrush and multiple lesions of the oral mucosa. Patient is afebrile and nontoxic-appearing. She endorses snorting an unknown drug and injecting the drug 4 days ago. Rapid strep ordered. 1115: Rapid strep negative. Oral nystatin, clindamycin, Magic mouthwash, ibuprofen prescribed for home. Instructed patient to follow up with oral surgeon for biopsy of the lesions if they persist. Instructed patient to follow up with primary care provider. Patient verbalizes understanding and agreement with treatment plan. Patient is medically cleared and stable for discharge. Discussed reasons to return to the emergency department. Patient agrees with treatment plan. The patients vital signs are stable and the patient is stable for outpatient follow-up and treatment. Patient discharged home, stable and in no acute distress. Diagnosis Primary Impression: Oral thrush Additional Impression: Lesion of oral mucosa Referrals: [facility] Primary Care Physician Patient Instructions: Canker Sores (ED), General Instructions, Oral Candidiasis (ED) Additional Instructions: Aquaphor, Vaseline and/or other topical dry skin remedies to dry skin around the nares Antibiotics as prescribed Magic mouthwash as directed and as needed for mouth lesions Nystatin as directed and as needed for oral thrush Follow-up with primary care provider Follow-up with oral surgeon for biposy of oral lesions if they persist Return to the emergency department immediately for worsening of symptoms Med/Other Pt SpecificInfo: Prescription(s) given Scripts Fjeipakffhsddxe-Nlaqaolrl-Ldi-Alum-Simeth Liq (Magic Mouthwash Pediatric/Adult Liq) 60 Ml Susp 5 ML SWISH-SWAL ACHS for Mouth sores, #60 ML 0 Refills Each 5mL contains: Diphenydramine 4.5mg, Viscous Lidocaine 2% 10mg, Maalox Advanced Regular Strength 2.7ml Prov: Darshana Chow INTERNATIONAL REPRESENTATIVE 02/27/17 Clindamycin (Clindamycin) 150 Mg Cap 450 MG PO Q8HR for Infection for 10 Days, CAP 0 Refills Prov: Darshana Chow INTERNATIONAL REPRESENTATIVE 02/27/17 Nystatin Liq (Nystatin Liq) 100,000 unit/ml Susp 5 ML SWISH-SWAL QID for Infection for 10 Days, ML 0 Refills Prov: Darshana Chow 02/27/17 Disposition: 01 DISCHARGE HOME Condition: Stable Darshana Chow Feb 27, 2017 10:49
[2017-02-27] MEDS ORDERED: IBUP1TAB7 PO (10:51)
[2017-02-27] MEDS ORDERED: CLIN150C14 PO (10:51)
[2017-02-27] MEDS ORDERED: NYST1000 SWISH-SWAL (10:51)
[2017-02-27] MEDS ORDERED: IBUPROFEN 800 MG TAB PO ONE (11:00)
[2017-02-27] MEDS ORDERED: MAGICPED SWISH-SWAL (11:14)
== END 2017-02-27 11:33 | disposition home or self-care (01) ==
LOC: NEPD 09:59
DX: B37.0 Candidal stomatitis (principal); K13.70 Unspecified lesions of oral mucosa
CPT/HCPCS: 87081; 87880; 99284